=== PATIENT | female | born 1975 | race Asian ===

== ENCOUNTER 2017-03-25 07:47 | Emergency (ER) | payer BC, OTHER ==
[2017-03-25 08:04] VITALS: BP 104/63
[2017-03-25] MEDS ORDERED: Acetaminophen TAB* 325 MG PO ONE (10:03)
--- NOTE | 2017-03-25 10:21 | UC ---
Respiratory Complaint HPI - HPI Summary HPI Summary: 4 DAYS OF COUGH, CONGESTION, FATIGUE, MYALGIAS AND FEVER. UTD FLU SHOT. THIS MORNING HAD SEVERE SHARP LEFT SHOULDER/ANTERIOR CHEST PAIN. IS 29WKS WITH TWINS. HERE AT PT HAS ELEVATED TEMP AND IS TACHYCARDIC. ALSO C/O SOB AND SIGNIFICANT NAUSEA. NO VAGINAL BLEEDING OR LOSS OF FLUID. BABIES ARE MOVING BUT PERHAPS A LITTLE LESS THIS MORNING THAN NORMAL. NO CONTRACTIONS. - History of Current Complaint Chief Complaint: UCGeneralIllness Stated Complaint: FEVER SHOULDER PAIN Time Seen by Provider: 03/25/17 08:05 Hx Obtained From: Patient, Family/Hr Associate - Hx Last Menstrual Period: 06/09/17 Onset/Duration: Gradual Onset, Lasting Days, Still Present Severity Initially: Moderate Severity Currently: Moderate Pain Intensity: 2 Pain Scale Used: 0-10 Numeric Character: Cough: Nonproductive Aggravating Factors: Nothing Alleviating Factors: Nothing Associated Signs And Symptoms: Positive: Dyspnea, Fever, URI, Nasal Congestion - Allergies/Home Medications Allergies/Adverse Reactions: Allergies Allergy/AdvReac Type Severity Reaction Status Date / Time banana Allergy GI Upset Verified 03/25/17 07:58 MS Aspirin [ASA] Allergy Rash Verified 03/25/17 07:57 PMH/Surg Hx/FS Hx/Imm Hx Previously Healthy: Yes - Surgical History Surgical History: Yes Surgery Procedure, Year, and Place: csection - Family History Known Family History: Negative: Hypertension - Social History Alcohol Use: None Substance Use Type: None Smoking Status (MU): Never Smoked Tobacco - Immunization History Most Recent Influenza Vaccination: 12/08/14 Most Recent Tetanus Shot: 01/02/15 Most Recent Pneumonia Vaccination: never Review of Systems Constitutional: Fever, Chills, Fatigue ENT: Sore Throat, Nasal Discharge Respiratory: Shortness Of Breath, Cough Cardiovascular: Chest Pain Gastrointestinal: Nausea Musculoskeletal: Myalgia All Other Systems Reviewed And Are Negative: Yes Physical Exam Triage Information Reviewed: Yes Appearance: Well-Nourished, Ill-Appearing - MOD Vital Signs: Initial Vital Signs Temp 99.9 F 03/25/17 07:59 Pulse 121 03/25/17 07:59 Resp 18 03/25/17 07:59 BP 104/63 03/25/17 07:59 Pulse Ox 96 03/25/17 07:59 Vital Signs Reviewed: Yes Eyes: Positive: Conjunctiva Clear ENT: Positive: Hearing grossly normal, Pharynx normal, TMs normal Neck: Positive: Supple, Nontender, No Lymphadenopathy Respiratory Exam: Normal Cardiovascular: Positive: Tachycardia Abdomen Description: Positive: Soft, Other: - GRAVID Musculoskeletal: Positive: No Edema Neurological: Positive: Alert Psychological: Positive: Age Appropriate Behavior Skin: Negative: rashes UC Diagnostic Evaluation - Laboratory O2 Sat by Pulse Oximetry: 96 Diagnostic Studies Comment: FLU NEG Respiratory Course/Dx - Course Course Of Treatment: INFLUENZA SWAB NEG. GIVEN SYMPTOMS OF CHEST PAIN, SHORTNESS OF BREATH, FEVER, TACHYCARDIA AND NAUSEA IN - CONCERN FOR PE. TO [facility]. PT OFFERED TRANSPORT BY AMBULANCE BUT DECLINES. ADVISED THAT BY NOT TRAVELING IN A MONITORED SETTING SHE COULD BE RISKING WORSENING OF HER CONDITION THAT COULD POSE A THREAT TO HER LIFE, HEALTH AND MEDICAL SAFETY. SHE VERBALIZES UNDERSTANDING AND CONTINUES TO DECLINE AMBULANCE TRANSFER. NOTIFIED CHARGE NURSE, TARA AT [facility]. - Differential Dx/Diagnosis Provider Diagnoses: CP/SOB/FEVER IN - Physician Notification/Consults Discussed Patient Care With: Anitha Douglas - TO [facility] BY PRIVATE CAR Time Discussed With Above Provider: 10:00 Instructed by Provider To: MD Will See In ED Discharge - Discharge Plan Condition: Stable Disposition: OTHER Discharge Disposition Comment: TO [facility] BY PRIVATE CAR Patient Education Materials: Chest Pain (ED), Shortness of Breath (ED) Referrals: Sofia Aguero MD [Primary Care Provider] - Additional Instructions: GIVEN YOUR SYMPTOMS OF CHEST PAIN, SHORTNESS OF BREATH, FEVER, FAST HEART RATE AND NAUSEA IN - CONCERN FOR PE. GO DIRECTLY TO THE [facility] FROM HERE FOR FURTHER EVALUATION. YOU HAVE DECLINED AMBULANCE TRANSFER. BE ADVISED THAT BY NOT TRAVELING IN A MONITORED SETTING YOU COULD BE RISKING WORSENING OF YOUR CONDITION THAT COULD POSE A THREAT TO YOUR LIFE, HEALTH AND MEDICAL SAFETY.
== END 2017-03-25 10:30 ==
LOC: UCEAST 07:47
DX: O26.893 Other specified pregnancy related conditions, third trimester (principal); R07.89 Other chest pain; R06.02 Shortness of breath; R50.9 Fever, unspecified; R00.0 Tachycardia, unspecified; R11.0 Nausea; Z3A.29 29 weeks gestation of pregnancy; Z88.6 Allergy status to analgesic agent
CPT/HCPCS: 87502; 99212; A9270-GY; G0463

== ENCOUNTER 2017-03-25 10:49 | Inpatient (IN) | payer BC ==
[2017-03-25 12:18] LABS: ABS Basophils 0 10^3/ul (0-0.2); ABS Eosinophils 0.1 10^3/ul (0-0.6); ABS Lymphocytes 0.6 10^3/ul (1.0-4.8); ABS Monocytes 0.7 10^3/ul (0-0.8); ABS Neutrophils 13.8 10^3/ul (1.5-7.7); ABS Nucleated RBC 0 10^3/ul; Eosinophil % 0.3 % (0-6); Hematocrit 32 % (35-47); Hemoglobin 10.9 g/dl (12.0-16.0); Mean Corpuscular HGB Conc 34 g/dl (31-36); Mean Corpuscular Hemoglobin 35 pg (27-31); Mean Corpuscular Volume 102 fL (80-97); Mean Platelet Volume 8 um3 (7.4-10.4); Nucleated Red Blood Cells % 0; Platelet Count 148 10^3/ul (150-450); Red Blood Count 3.12 10^6/ul (4.0-5.4); Red Cell Distribution Width 14 % (10.5-15); White Blood Count 15.2 10^3/ul (3.5-10.8)
--- NOTE | 2017-03-25 12:29 | RAD ---
HISTORY: Shortness of breath, COMPARISONS: None relevant TECHNIQUE: Multiple transverse and longitudinal ultrasound images were obtained of the bilateral lower extremities from the level of the common femoral vein inferiorly through to the infrapopliteal veins using grayscale, color Doppler, and spectral Doppler imaging with and without compression and with augmentation. FINDINGS: VEINS: The venous system of the bilateral lower extremities is compressible throughout its course, with normal flow on color Doppler imaging and normal response to augmentation on spectral Doppler imaging. SOFT TISSUES: Unremarkable. OTHER FINDINGS: None. IMPRESSION: NO RIGHT LOWER EXTREMITY DEEP VEIN THROMBOSIS. NO LEFT LOWER EXTREMITY DEEP VEIN THROMBOSIS
[2017-03-25 12:31] LABS: EGFR Non-African American 141.8 (>60)
[2017-03-25] MEDS ORDERED: Potassium Chlor TAB* 20 MEQ TAB.ER PO ONE (12:33)
[2017-03-25] MEDS: NS 0.9% 1000 ML* 2,000 ML IV ONE ×3 (13:02→21:12)
[2017-03-25] MEDS ORDERED: Acetaminophen TAB* 325 MG PO ONE ×2 (13:30→20:06)
--- NOTE | 2017-03-25 13:35 | RAD ---
HISTORY: Chest pain, shortness of breath COMPARISONS: None VIEWS: 1: frontal portable view of the chest at 1:15 PM FINDINGS: LINES AND TUBES: None. CARDIOMEDIASTINAL SILHOUETTE: The cardiomediastinal silhouette is normal for portable technique. PLEURA: The costophrenic angles are sharp. No pleural abnormalities are noted. LUNG PARENCHYMA: A nipple shadow is noted overlying the left lower chest. ABDOMEN: The upper abdomen is clear. There is no subphrenic gas. BONES AND SOFT TISSUES: No bone or soft tissue abnormalities are noted. IMPRESSION: NO ACTIVE CARDIOPULMONARY DISEASE.
[2017-03-25 14:11] LABS: Urine Appearance Clear; Urine Blood Negative (Negative); Urine Color Yellow; Urine Ketones Negative (Negative); Urine Protein Negative (Negative); Urine Specific Gravity 1.005 (1.010-1.030); Urine Urobilinogen Negative (Negative)
[2017-03-25] MEDS ORDERED: NS 0.9% 1000 ML* 1,000 ML IV ONE (16:41)
[2017-03-25] MEDS ORDERED: Iohexol 350* (CONTRAST) 500 ML MDV IV ONE (18:10)
--- NOTE | 2017-03-25 18:49 | RAD ---
INDICATION: Shortness of breath COMPARISON: None TECHNIQUE: Axial source images were acquired following the administration of 61 mL Omnipaque [address] angiographic technique. Coronal and sagittal reconstructed images were constructed and reviewed. FINDINGS: There there are no filling defects in the pulmonary arteries to indicate acute pulmonary embolic disease. There is consolidation involving the dependent portion of the left lower lobe with scattered air bronchograms. There are patchy groundglass densities scattered in the lungs, for example in the subpleural right upper lobe (image 16 and 43). The heart is normal in size. There is no evidence of pericardial effusion. There is no evidence of aortic aneurysm or dissection. There is no mediastinal, hilar, or axillary lymphadenopathy. The visualized osseous structures appear normal. Limited views of the upper abdomen show no abnormalities. IMPRESSION: 1. No CT of evidence of pulmonary embolism. 2. There is consolidation with scattered air bronchograms in the dependent portion of the left lower lobe. Predominantly in the right lobes there are scattered groundglass nodules. The differential includes infectious pneumonia or inflammatory lung disease.
[2017-03-25] MEDS ORDERED: Azithromycin IV(*) 500 MG in NS 0.9% 250 ML* 250 ML IVPB ONE (19:12)
[2017-03-25] MEDS: Acetaminophen TAB* 325 MG PO PRN (23:56)
--- NOTE | 2017-03-25 23:57 | HP ---
CC: Dr. Sofia Aguero; Dr. Prado, [facility] * HISTORY AND PHYSICAL: DATE OF ADMISSION: 03/25/17 PRIMARY CARE PROVIDER: Dr. Sofia Aguero. INTERFACE ENGINEER: Dr. Prado. ATTENDING PHYSICIAN: Dr. Antoinette Armando * (dictated by Fabiola Cisneros NP). CHIEF COMPLAINT: Four days of cough, congestion, fatigue, myalgias and fever. HISTORY OF PRESENT ILLNESS: Ms. Colvin is a 42-year-old female with past medical history significant for hyperthyroidism, who is 29 weeks with twins who was in her usual state of health until approximately 4 days ago when she developed a cough, congestion, fatigue, malaise and fever. She reports that this morning, she developed a severe sharp right shoulder anterior chest pain, had a fever of 101.2 at home. Due to these symptoms, she decided to present to Urgent Care for further evaluation. Urgent Care sent the patient to the emergency room. The patient denies any chills. She reports intermittent shortness of breath since this morning. She denies nausea, vomiting, diarrhea. She reports a poor appetite, but states she has been drinking fluids well. While in the emergency room, she had labs remarkable for leukocytosis, a fever up to 103.5. She was tachycardic and tachypneic. She initially had a chest x- ray showing no acute findings. She had an EKG showing a sinus tachycardia and rate of 103. She had a negative urinalysis. She had a CT of her chest showing no evidence of a PE. She had venous Doppler's that were negative. She had an ESR of 68, a D-dimer of 398, lactic acid of 2.2, CRP of 46.22, TSH of 0.21. She was influenza A and B negative. Due the patient being , she was seen in consultation by Dr. Robert Shea with Obstetrics and the hospitalists were asked to evaluate the patient for admission. PAST MEDICAL HISTORY: 1. Hyperthyroidism during this . She is followed by Dr. Costello. 2. 29 weeks with twins. PAST SURGICAL HISTORY: Status post section 2 years ago. HOME MEDICATIONS: Include: 1. Multivitamin and DHA 1 tablet oral daily. 2. Acetaminophen 650 mg oral every 4 hours as needed for fever or pain. ALLERGIES: ASPIRIN and MORPHINE. FAMILY HISTORY: The patient's maternal grandmother had a history of an [place]. Her paternal family has a history of diabetes mellitus and she has no family history of cancer. SOCIAL HISTORY: The patient denies tobacco, alcohol, or recreational drug use. Her , Phil Ferrera, will be her surrogate decision maker in the event she is unable to make decisions for herself. REVIEW OF SYSTEMS: I performed an 11-point review of systems. All the pertinent positives and negatives are mentioned in the history of present illness. Remaining review of systems are negative. The patient has bilateral lower extremity edema that is chronic due to her in addition to myalgia, though it is chronic during her . She also denies any urinary symptoms. PHYSICAL EXAMINATION GENERAL APPEARANCE: The patient is alert, pleasant, and appears to be in no acute distress. VITAL SIGNS: Temperature 103.5, heart rate 130, respiratory rate 32, O2 sat 97 % on room air, blood pressure 125/89. HEENT: Normocephalic, atraumatic. Pupils are equal and reactive to light. Extraocular movements are intact. RESPIRATORY: Lung sounds are clear to auscultation, bilateral. CARDIOVASCULAR: Regular rate and rhythm, tachycardic. S1, S2 present. There are no murmurs, rubs or gallops heard. ABDOMEN: Gravid and nontender. There are bowel sounds present x4. EXTREMITIES: There is mild bilateral lower extremity edema. DP and PT pulses are 2+ and symmetric. MUSCULOSKELETAL: There is no clubbing or cyanosis noted. The patient exhibits good strength in all extremities. NEUROLOGIC: The patient is alert and oriented x4. Cranial nerves II through XII are grossly intact. PSYCHOLOGICAL: The patient is calm and cooperative. SKIN: There are no rashes or abnormalities seen. DIAGNOSTIC STUDIES/LABORATORY DATA: Sodium 130, potassium 3.2, chloride 100, CO2 21, BUN 5, creatinine 0.48, glucose 141, lactic acid 2.2, CRP 46.22, TSH 0.21. White blood cell count 15.2, hemoglobin 10.9, hematocrit 32, platelet count 148, ESR 60. Urinalysis is essentially negative. Influenza A and B negative. EKG: Shows a sinus tachycardia, rate of 103. There are no acute signs of ischemia. This EKG is similar to previous from 04/07/12. Bilateral lower extremity venous Doppler ultrasounds from today show no right lower extremity deep vein thrombosis. No left lower extremity deep vein thrombosis. Chest x-ray from today. Radiologist impression: No active cardiopulmonary disease. Chest thoracic CTA from today. Radiologist impression: No CT evidence of pulmonary embolus. There is consolidation with scattered air bronchograms in the dependent portion of the left lower lobe. Predominantly in the lobes, there are scattered grass ground nodules. The differential includes infectious pneumonia or inflammatory lung disease. IMPRESSION: Ms. Colvin is a 42-year-old female with past medical history significant for hyperthyroidism during who is 29 weeks gravid with twins who presented to the emergency room with complaints of cough, congestion, fatigue, and fever and was found to have pneumonia with sepsis. She will be admitted as an observation. ASSESSMENT/PLAN: 1. Left lower lobe pneumonia with associated sepsis. The patient has received the required amount of fluid bolus while in the emergency room. She had a fever as high as 103.5. We will give her Tylenol as needed for fevers. Due to her tachycardia, we will place her on telemetry. She is also tachypneic. We will continue IV fluids, place her on ceftriaxone and azithromycin both of which are safe with . We will check urine for Legionella and S. pneumoniae antigens. We will get a sputum culture if she is able to produce a sputum sample. 2. Hyperthyroidism. The patient's TSH appears to be close to what it has been. She follows with Dr. Costello as an outpatient. She will continue to do so accordingly monthly as previously planned. 3. 29 weeks gravid with twins. The patient will have heart tone checks every shift. She has been seen by Dr. Shea in the emergency room. She has been instructed to notify staff if she develops any abdominal discomfort or vaginal bleeding. 4. Fluids, electrolytes, and nutrition. The patient will be on a regular diet. 5. Code status. Full code. 6. DVT prophylaxis. The patient is at moderate risk and will have SCDs. 7. Disposition. Observation. TIME SPENT: Time for this admission was approximately 60 minutes, greater than half of that was spent with the patient and her discussing medications, past medical history, and the events leading up to arrival today and performing a physical examination. The case has been reviewed with the attending, Dr. Armando, who agrees with the plan of care. Reviewed by SUSAN GILMORE-Kevin 03/26/17 [id number]/[facility] #: [id number] MTDD
[2017-03-26] MEDS ORDERED: cefTRIAXone(*) 1 GM in NS 0.9% 50 ML* 50 ML IVPB SCH ×2
[2017-03-26] MEDS: NS 0.9% 1000 ML* 1,000 ML IV SCH ×3 (01:58→22:16)
--- NOTE | 2017-03-26 05:55 | PN ---
Progress Note - Progress Note Date of Service: 03/26/17 Note: Paged for SOB - Patient states she can't lie down because she starts coughing when lying down. States she couldn't tolerate nasal cannula because she is so congested and was switched to face mask. No increase in work of breathing. Diminished breath sounds with b/l rhonchi. Will start guanfesin and flonase for now.
[2017-03-26] MEDS: guaiFENesin LIQ* 100 MG/5 ML UDC PO PRN ×3 (06:01→19:25)
[2017-03-26] MEDS: Acetaminophen TAB* 325 MG PO PRN ×3 (06:01→19:26)
[2017-03-26] MEDS: Fluticasone NASAL SPRAY 50MCG* 16 gm SPRAY BTL BOTH NARES SCH ×2 (06:19→09:26)
[2017-03-26 08:00] LABS: Hematocrit 27 % (35-47); Hemoglobin 9.4 g/dl (12.0-16.0); Mean Corpuscular HGB Conc 35 g/dl (31-36); Mean Corpuscular Hemoglobin 36 pg (27-31); Mean Corpuscular Volume 105 fL (80-97); Mean Platelet Volume 8 um3 (7.4-10.4); Platelet Count 112 10^3/ul (150-450); Red Blood Count 2.59 10^6/ul (4.0-5.4); Red Cell Distribution Width 14 % (10.5-15); White Blood Count 14.9 10^3/ul (3.5-10.8)
[2017-03-26 08:25] LABS: EGFR Non-African American 170.1 (>60)
[2017-03-26] MEDS: Prenatal Vitamin TAB PO SCH (09:26)
[2017-03-26] MEDS ORDERED: Magnesium Sulfate IV* 3 GM in NS 0.9% 100 ML* 100 ML IVPB ONE (10:00)
[2017-03-26] MEDS ORDERED: Potassium Chlor TAB* 20 MEQ TAB.ER PO ONE (11:18)
[2017-03-26 11:31] LABS: Monocytes % 1 % (0-13)
[2017-03-26] MEDS ORDERED: Piperacillin/Tazobac ADVAN(*) 3.375 GM in NS 0.9% 100 ML* 100 ML IVPB ONE (14:00)
[2017-03-26] MEDS ORDERED: Zosyn per Pharmacy* NOTE FOLLOW UP SCH (14:00)
[2017-03-26] MEDS: Azithromycin IV(*) 500 MG in NS 0.9% 250 ML* 250 ML IVPB SCH (17:58)
[2017-03-26] MEDS ORDERED: ZOSYN 3.375 GM Q8H per EXTENDED INFUSION IVPB SCH ×4 (18:00→19:00)
--- NOTE | 2017-03-26 19:32 | PN ---
Subjective Date of Service: 03/26/17 Interval History: initially had sharp pain in left shoulder/upper chest. now resolved Spiked another fever. Blood cultures drawn and switched from ceftriaxone to zosyn. MRSA nares obtained and negative. Lactic acidosis Fevers overall improved. Dr. Prado consulted. Objective Active Medications: Acetaminophen (Tylenol Tab*) 650 mg PO Q4H PRN PRN Reason: FEVER/PAIN Last Admin: 03/26/17 11:46 Dose: 650 mg Fluticasone Propionate (Flonase Nasal Ivor 50mcg*) 2 spray BOTH NARES DAILY [facility] Last Admin: 03/26/17 09:26 Dose: 2 spray Guaifenesin (Robitussin*) 5 ml PO Q4H PRN PRN Reason: COUGH Last Admin: 03/26/17 10:23 Dose: 5 ml Sodium Chloride (Ns 0.9% 1000 Ml*) 1,000 mls @ 125 mls/hr IV PER RATE [facility] Last Admin: 03/26/17 10:23 Dose: 125 mls/hr Azithromycin 500 mg/ Sodium (Chloride) 250 mls @ 250 mls/hr IVPB Q24H [facility] Last Admin: 03/26/17 17:58 Dose: 250 mls/hr Piperacillin Sod/Tazobactam (Sod 3.375 gm/ Sodium Chloride) 100 mls @ 25 mls/ hr IVPB 0300,1100,1900 [facility] Multivitamins ( Vitamin Tab*) 1 tab PO DAILY [facility] Last Admin: 03/26/17 09:26 Dose: 1 tab Pharmacy Consult (Zosyn Per Pharmacy*) 1 note FOLLOW UP .ZOSYN PER PHARMACY [facility] Vital Signs - 8 hr 03/26/17 03/26/17 13:00 15:00 Temperature 101.2 F 98.4 F Pulse Rate 113 Respiratory 24 Rate Blood Pressure 102/68 (mmHg) O2 Sat by Pulse 94 Oximetry Oxygen Devices in Use Now: None Appearance: NAD Eyes: No Scleral Icterus, PERRLA Neck: NL Appearance and Movements; NL JVP Respiratory: Symmetrical Chest Expansion and Respiratory Effort, Clear to Auscultation Cardiovascular: NL Sounds; No Murmurs; No JVD, - - tachycardic Abdominal: - - gravid, nontender Extremities: No Edema, No Clubbing, Cyanosis Skin: No Rash or Ulcers, No Nodules or Sclerosis Neurological: Alert and Oriented x 3, NL Sensation, NL Muscle Strength and Tone Nutrition: Taking PO's Result Diagrams: 03/26/17 07:43 03/26/17 07:43 Additional Lab and Data: Laboratory Results - last 24 hr 03/26/17 03/26/17 03/26/17 07:43 07:43 07:43 WBC 14.9 H RBC 2.59 L Hgb 9.4 L Hct 27 L MCV 105 H MCH 36 H MCHC 35 RDW 14 Plt Count 112 L MPV 8 Neut % (Auto) Not Reportable Lymph % (Auto) Not Reportable [place] % (Auto) Not Reportable Eos % (Auto) Not Reportable Baso % (Auto) Not Reportable Absolute Neuts (auto) Not Reportable Absolute Lymphs (auto) Not Reportable Absolute Monos (auto) Not Reportable Absolute Eos (auto) Not Reportable Absolute Basos (auto) Not Reportable Absolute Nucleated RBC Not Reportable Immature Gran % 32 H Neutrophils % 60 Band Neutrophils % 27 H Lymphocytes % 7 L Reactive Lymphs % 0 Monocytes % 1 Eosinophils % 0 Basophils % 0 Metamyelocytes % 5 H Nucleated RBC % Not Reportable Abs Neuts (Manual) 8.9 H Abs Monocytes (Manual) 0.1 Absolute Eos (Manual) 0 Abs Basophils (Manual) 0 Normal RBC Morphology Normal Sodium 135 Potassium 3.3 L Chloride 111 Carbon Dioxide 17 L Anion Gap 7 BUN 4 L Creatinine 0.41 L Est GFR ( Amer) 218.8 Est GFR (Non-Af Amer) 170.1 BUN/Creatinine Ratio 9.8 Glucose 164 H Lactic Acid 2.2 H* Calcium 7.6 L Magnesium 1.6 L Total Bilirubin 0.50 AST 11 L ALT 7 Alkaline Phosphatase 69 Total Protein 4.7 L Albumin 2.5 L Globulin 2.2 Albumin/Globulin Ratio 1.1 03/26/17 14:38 WBC RBC Hgb Hct MCV MCH MCHC RDW Plt Count MPV Neut % (Auto) Lymph % (Auto) [place] % (Auto) Eos % (Auto) Baso % (Auto) Absolute Neuts (auto) Absolute Lymphs (auto) Absolute Monos (auto) Absolute Eos (auto) Absolute Basos (auto) Absolute Nucleated RBC Immature Gran % Neutrophils % Band Neutrophils % Lymphocytes % Reactive Lymphs % Monocytes % Eosinophils % Basophils % Metamyelocytes % Nucleated RBC % Abs Neuts (Manual) Abs Monocytes (Manual) Absolute Eos (Manual) Abs Basophils (Manual) Normal RBC Morphology Sodium Potassium Chloride Carbon Dioxide Anion Gap BUN Creatinine Est GFR ( Amer) Est GFR (Non-Af Amer) BUN/Creatinine Ratio Glucose Lactic Acid 2.1 H* Calcium Magnesium Total Bilirubin AST ALT Alkaline Phosphatase Total Protein Albumin Globulin Albumin/Globulin Ratio Microbiology and Other Data: Microbiology 03/26/17 00:05 Sputum Expectorated Gram Stain - Final 03/26/17 11:40 Nasal Nasal Screen MRSA (PCR)(LORI) - Final Mrsa Not Detected 03/25/17 22:23 Urine Legionella Urinary Antigen - Final Negative Legionella 03/25/17 22:23 Urine Streptococcus pneumoniae Ag Screen - Final Negative S. pneumo Antigen 03/25/17 12:48 Nasal Influenza Types A,B Antigen (LORI) - Final Specimen received for Influenza A/B Molecular testing Assess/Plan/Problems-Billing Assessment: 42 yo female 29 weeks with twins, recent son and sick p/w cough , congestion, fatigue, malaise. Flu swab negative. Fevers to 103, tachycardia, leukocytosis. Sepsis 2/2 likely viral +/- superimposed bacterial pna. CTA in ED with left base consolidation and right sided scattered ground glass nodules. On zosyn, azithromycin. - Patient Problems (1) Sepsis Current Visit: Yes Status: Acute Comment: Source likely viral insult +/- superimposed bacterial infection in setting of . Lactic acidosis 2.2. Leukocytosis 15.2 slightly improved. High fever to 103.5. Sick contacts 2 year old son and . (2) Pneumonia affecting in third trimester Current Visit: Yes Status: Acute Code(s): O99.513 - DISEASES OF THE RESP SYS COMP , THIRD TRIMESTER; J18.9 - PNEUMONIA, UNSPECIFIED ORGANISM SNOMED Code(s): 795679793 Comment: CT chest angiogram showed consolidation at base of left lung and scattered ground glass nodules mostly in right lung. f/u sputum culture MRSA negative switched from cftx to zosyn as still spiking fevers though think likely viral process as well. Continue azithromycin. added blood culture with recurrent fever. not drawn on admission. Urine Strep and Legionella antigens negative. (3) Current Visit: No Status: Acute Priority: High Onset Date: 04/03/15 Comment: [address], [address] Dr[address] Prado consulted. appreciate recs continue dopplers. planned at 38 weeks. reportedly uncomplicated. no protein on UA on admission. Not hypertensive. Status and Disposition: medicine inpatient.
[2017-03-26] MEDS ORDERED: Azithromycin IV(*) 500 MG in D5W 250 ML BAG* 250 ML IVPB SCH (22:00)
[2017-03-27] MEDS: [UNRECOGNIZED DRUG - OTHER] IVPB SCH ×6 (01:27→14:00)
[2017-03-27] MEDS: TAZOBACTAM IVPB SCH ×6 (01:27→14:00)
[2017-03-27] MEDS: PIPERACILLIN IVPB SCH ×6 (01:27→14:00)
[2017-03-27] MEDS: guaiFENesin LIQ* 100 MG/5 ML UDC PO PRN (04:55)
[2017-03-27 06:22] LABS: Hematocrit 28 % (35-47); Hemoglobin 9.6 g/dl (12.0-16.0); Mean Corpuscular HGB Conc 34 g/dl (31-36); Mean Corpuscular Hemoglobin 36 pg (27-31); Mean Corpuscular Volume 104 fL (80-97); Mean Platelet Volume 8 um3 (7.4-10.4); Platelet Count 127 10^3/ul (150-450); Red Blood Count 2.67 10^6/ul (4.0-5.4); Red Cell Distribution Width 14 % (10.5-15); White Blood Count 15.2 10^3/ul (3.5-10.8)
[2017-03-27 06:36] LABS: EGFR Non-African American 156.8 (>60)
[2017-03-27 06:57] LABS: ABS Basophils 0 10^3/ul (0-0.2); ABS Eosinophils 0.1 10^3/ul (0-0.6); ABS Lymphocytes 0.9 10^3/ul (1.0-4.8); ABS Monocytes 0.5 10^3/ul (0-0.8); ABS Neutrophils 13.6 10^3/ul (1.5-7.7); ABS Nucleated RBC 0 10^3/ul; Eosinophil % 0.9 % (0-6); Nucleated Red Blood Cells % 0
[2017-03-27] MEDS ORDERED: Magnesium Sulfate 2 GM IV* 2 GM/50 ML BAG IVPB ONE (07:45)
[2017-03-27] MEDS: Fluticasone NASAL SPRAY 50MCG* 16 gm SPRAY BTL BOTH NARES SCH (09:22)
[2017-03-27] MEDS: Prenatal Vitamin TAB PO SCH (09:22)
[2017-03-27] MEDS: Acetaminophen TAB* 325 MG PO PRN (09:22)
--- NOTE | 2017-03-27 10:23 | CONS ---
CONSULTATION REPORT: DATE OF CONSULT: 03/26/17 HISTORY OF PRESENT ILLNESS: The patient is a 42-year-old 3 para 1-0-1- 1 who presents with a diamniotic, dichorionic twin gestation at 29 and 2/7 weeks with fevers and left lower lobe pneumonia with consolidation in the left lower lobe consistent with pneumonia. The patient is currently on broad spectrum coverage for community-acquired, pneumonia has had negative cultures with Strep pneumo and influenza screening has been negative. The patient notes that the fever has been associated with a cough and left shoulder pain. The patient appears to be responding nicely to current IV antibiotics, does have blood cultures pending, but overall states that her cough is decreasing and she is feeling slightly improved. PAST MEDICAL HISTORY: Unremarkable. PAST SURGICAL HISTORY: Noted for a primary low transverse section on 04/03/15 with a category 2 heart tracing. MEDICATIONS: Current medications are vitamins and DHA. ALLERGIES: She has drug allergies to ASPIRIN. REVIEW OF SYSTEMS: Positive cough, positive congestion. Negative dysuria, hematuria, negative vaginal bleeding. PHYSICAL EXAM: Constitutional: The patient is resting in right lateral decubitus position. Abdomen: Gravid and nontender. Extremities: Nontender, trace edema. Lungs: Not auscultated. ASSESSMENT AND PLAN: The patient is a 42-year-old 3 para 1-0-1-1 who is 29 and 2/7 weeks with di-di twin with a diagnosis of pneumonia. I agree with antibiotic coverage and we will continue with IV antibiotic coverage for greater than 24 hours afebrile and then convert to oral course. Azithromycin will be an appropriate choice in this situation. The patient has a followup already scheduled for her obstetric visit in two weeks with growth ultrasound. We will recommend NSTs daily. She had a reactive NST from late and I would recommend just daily NSTs for heart tones and evaluate for uterine contractility. [id number]/[id number] #: [id number] [facility]AMPUSDora
--- NOTE | 2017-03-27 11:06 | ED ---
Rayray Campos Stephanie, scribed for Kavon Leroy MD on 03/25/17 at 1126 . Complex/Multi-Sys Presentation - HPI Summary HPI Summary: The pt is a 42 y/o F presenting to the ED with c/o fever at 04:00. Symptoms include cough (since 03/22), sore throat, chills, SOB and L shoulder to upper L chest intermittent pain. The pt denies sneezing and L arm pain with movement or breathing. The pt reports mild fever since 03/22/17, swelling in legs bilaterally , and chronic body aches with . [place] [facility] [facility] to r/o PE. The pt is 29 weeks . The pt is influenza negative. - History Of Current Complaint Chief Complaint: EDShortnessOfBreath Time Seen by Provider: 03/25/17 11:05 Hx Obtained From: Patient Onset/Duration: Gradual Onset, Lasting Hours - 7, Still Present Timing: Intermittent, Lasting: Severity Currently: Mild Associated Signs And Symptoms: Positive: SOB, Cough, Chest Pain - L side, Other - fever, sore throat, chills, L shoulder to upper L chest intermittent pain - Allergies/Home Medications Allergies/Adverse Reactions: Allergies Allergy/AdvReac Type Severity Reaction Status Date / Time banana Allergy GI Upset Verified 03/25/17 07:58 MS Aspirin [ASA] Allergy Rash Verified 03/25/17 07:57 Home Medications: Home Medications Vitamin TAB* 1 tab PO DAILY 03/25/17 [History Confirmed 03/25/17] PMH/Surg Hx/FS Hx/Imm Hx Sensory History: Denies: Hx Legally Blind EENT History: Denies: Hx Deafness - Surgical History Surgery Procedure, Year, and Place: csection Infectious Disease History: No Infectious Disease History: Denies: Traveled Outside the [place] in Last 30 Days - Family History Known Family History: Positive: Cardiac Disease, Hypertension, Other - hyperthyroidism - Social History Occupation: Employed Full-time Lives: With Family Alcohol Use: None Substance Use Type: Reports: None Hx Tobacco Use: No Smoking Status (MU): Never Smoked Tobacco Review of Systems Positive: Fever, Chills Negative: Erythema Positive: Sore Throat Positive: Chest Pain - L side Positive: Shortness Of Breath, Cough Negative: Abdominal Pain, Vomiting, Nausea Negative: dysuria, hematuria Positive: Myalgia - chronic with , Edema - chronic LE edema with , Other - L shoulder pain Negative: Rash Neurological: Other - Negative: dizziness All Other Systems Reviewed And Are Negative: Yes Physical Exam - Summary Physical Exam Summary: Constitutional: Well-developed, Well-nourished, Alert. (-) Distressed Skin: Warm to touch, Dry HENT: Normocephalic; Atraumatic Eyes: Conjunctiva normal Neck: Musculoskeletal ROM normal neck. (-) JVD, (-) Stridor, (-) Tracheal deviation Cardio: Rhythm regular, rate normal, Heart sounds normal; Intact distal pulses; The pedal pulses are 2+ and symmetric. Radial pulses are 2+ and symmetric. (-) Murmur Pulmonary/Chest wall: Effort normal. (-) Respiratory distress, (-) Wheezes, (-) Rales Abd: Soft, (-) Tenderness, (-) Distension, (-) Guarding, (-) Rebound Musculoskeletal: (-) Edema Lymph: (-) Cervical adenopathy Neuro: Alert, Oriented x3 Psych: Mood and affect Normal Triage Information Reviewed: Yes Vital Signs On Initial Exam: Initial Vitals Temp Pulse Resp BP Pulse Ox 99.5 F 114 16 111/57 95 03/25/17 10:56 03/25/17 10:56 03/25/17 10:56 03/25/17 10:56 03/25/17 10:56 Vital Signs Reviewed: Yes Diagnostics - Vital Signs Vital Signs Temp Pulse Resp BP Pulse Ox 03/25/17 10:56 99.5 F 114 16 111/57 95 - Laboratory Result Diagrams: 03/25/17 11:50 03/25/17 11:50 Lab Statement: Any lab studies that have been ordered have been reviewed, and results considered in the medical decision making process. - Radiology CXR Xray Interpretation: No Acute Changes Radiology Interpretation Completed By: Radiologist - NO ACTIVE CARDIOPULMONARY DISEASE. - CT CTA Chest/Thorax CT Interpretation: Positive (See Comments) CT Interpretation Completed By: Radiologist - 1. No CT of evidence of pulmonary embolism. 2. There is consolidation with scattered air bronchograms in the dependent portion of the left lower lobe. Predominantly in the right lobes there are scattered groundglass nodules. The differential includes infectious pneumonia or inflammatory lung disease. - EKG 11:23 EKG Rhythm: Sinus Tachycardia - 103 BPM EKG Interpretation: No STEMI - Additional Comments Diagnostic Additional Comments: Venous Doppler shows: NO RIGHT LOWER EXTREMITY DEEP VEIN THROMBOSIS. NO LEFT LOWER EXTREMITY DEEP VEIN THROMBOSIS Re-Evaluation - Re-Evaluation First Eval Re-Evaluation Time: 12:35 Change: Worse - The ptt pain returned. She denies desire for pain medication and refuses an IV. ED physician gave the pt literature from [employer] [place] [employer] [employer] regarding radiation risk. ED physician explained information to the pt and . Second Eval Re-Evaluation Time: 14:20 Change: Unchanged - Pt is still having L sided CP and now also in abdomen. Third Eval Re-Evaluation Time: 20:39 Change: Unchanged - Pt refusing to walk at this time. She says she is too cold and too week. Complex Multi-Symp Course/Dx Course Of Treatment: ED physician states possibility of pericarditis or viral syndrome as son recently had febrile illness. Fever preceded CP. CP and SOB are currently resolved. ED physician believes she is intermediate risk for PE pretest probability. ED physician confirmed with [facility] lab that repeat flu test was also negative.Dr. Shea evaluated the pt. The patients abd pain resolved. He believes she had round ligament pain. The pt and her want a CT chest based on discussion they had with Dr. Guallpa. Medicine will admit. OB will consult for . - Diagnoses Provider Diagnoses: Sepsis, Community acquired pneumonia Discharge - Discharge Plan Condition: Stable Disposition: ADMITTED TO [facility] Referrals: Sofia Aguero MD [Primary Care Provider] - The documentation as recorded by the Rayray timmons Stephanie accurately reflects the service I personally performed and the decisions made by me, Kavon Leroy MD.
--- NOTE | 2017-03-27 11:32 | PN ---
Subjective Date of Service: 03/27/17 Interval History: Sharp pain up to 8/10 in LUQ this AM, currently resolved. pleuritic pain in left back with deep breaths. Cough slightly better, still brown/red. Tmax 101.2, improved since. Green soft BMs. Objective Active Medications: Acetaminophen (Tylenol Tab*) 650 mg PO Q4H PRN PRN Reason: FEVER/PAIN Last Admin: 03/27/17 09:22 Dose: 650 mg Fluticasone Propionate (Flonase Nasal [place] 50mcg*) 2 spray BOTH NARES DAILY [facility] Last Admin: 03/27/17 09:22 Dose: Not Given Guaifenesin (Robitussin*) 5 ml PO Q4H PRN PRN Reason: COUGH Last Admin: 03/27/17 04:55 Dose: 5 ml Azithromycin 500 mg/ Sodium (Chloride) 250 mls @ 250 mls/hr IVPB Q24H [facility] Last Admin: 03/26/17 17:58 Dose: 250 mls/hr Piperacillin Sod/Tazobactam (Sod 3.375 gm/ Sodium Chloride) 100 mls @ 200 mls/ hr IVPB Q6H [facility] Last Admin: 03/27/17 08:35 Dose: 200 mls/hr Multivitamins ( Vitamin Tab*) 1 tab PO DAILY [facility] Last Admin: 03/27/17 09:22 Dose: 1 tab Pharmacy Consult (Zosyn Per Pharmacy*) 1 note FOLLOW UP .ZOSYN PER PHARMACY [facility] Vital Signs - 8 hr 03/27/17 03/27/17 07:31 08:00 Temperature 97.7 F Pulse Rate 102 Respiratory 18 18 Rate Blood Pressure 100/57 (mmHg) O2 Sat by Pulse 91 Oximetry Oxygen Devices in Use Now: None Appearance: NAD, less anxious appearing. Eyes: No Scleral Icterus, PERRLA Ears/Nose/Mouth/Throat: NL Teeth, Lips, Gums, Mucous Membranes Moist Neck: NL Appearance and Movements; NL JVP Respiratory: - - slight rhonchi left base. no wheezing or rales. Cardiovascular: NL Sounds; No Murmurs; No JVD, RRR, - Abdominal: - - gravid, nontender, Extremities: No Edema Skin: No Rash or Ulcers, No Nodules or Sclerosis Neurological: Alert and Oriented x 3, NL Sensation, NL Muscle Strength and Tone Result Diagrams: 03/27/17 06:00 03/27/17 06:00 Additional Lab and Data: Laboratory Results - last 24 hr 03/26/17 03/26/17 03/27/17 07:43 14:38 06:00 WBC 14.9 H 15.2 H RBC 2.59 L 2.67 L Hgb 9.4 L 9.6 L Hct 27 L 28 L MCV 105 H 104 H MCH 36 H 36 H MCHC 35 34 RDW 14 14 Plt Count 112 L 127 L MPV 8 8 Neut % (Auto) Not Reportable 89.6 H Lymph % (Auto) Not Reportable 6.0 L [place] % (Auto) Not Reportable 3.4 Eos % (Auto) Not Reportable 0.9 Baso % (Auto) Not Reportable 0.1 Absolute Neuts (auto) Not Reportable 13.6 H Absolute Lymphs (auto) Not Reportable 0.9 L Absolute Monos (auto) Not Reportable 0.5 Absolute Eos (auto) Not Reportable 0.1 Absolute Basos (auto) Not Reportable 0 Absolute Nucleated RBC Not Reportable 0 Immature Gran % 32 H Neutrophils % 60 Band Neutrophils % 27 H Lymphocytes % 7 L Reactive Lymphs % 0 Monocytes % 1 Eosinophils % 0 Basophils % 0 Metamyelocytes % 5 H Nucleated RBC % Not Reportable 0 Abs Neuts (Manual) 8.9 H Abs Monocytes (Manual) 0.1 Absolute Eos (Manual) 0 Abs Basophils (Manual) 0 Normal RBC Morphology Normal Sodium Potassium Chloride Carbon Dioxide Anion Gap BUN Creatinine Est GFR ( Amer) Est GFR (Non-Af Amer) BUN/Creatinine Ratio Glucose Lactic Acid 2.1 H* Calcium Magnesium Vitamin B12 Folate 03/27/17 06:00 WBC RBC Hgb Hct MCV MCH MCHC RDW Plt Count MPV Neut % (Auto) Lymph % (Auto) [place] % (Auto) Eos % (Auto) Baso % (Auto) Absolute Neuts (auto) Absolute Lymphs (auto) Absolute Monos (auto) Absolute Eos (auto) Absolute Basos (auto) Absolute Nucleated RBC Immature Gran % Neutrophils % Band Neutrophils % Lymphocytes % Reactive Lymphs % Monocytes % Eosinophils % Basophils % Metamyelocytes % Nucleated RBC % Abs Neuts (Manual) Abs Monocytes (Manual) Absolute Eos (Manual) Abs Basophils (Manual) Normal RBC Morphology Sodium 134 Potassium 3.5 Chloride 110 Carbon Dioxide 19 L Anion Gap 5 BUN 4 L Creatinine 0.44 L Est GFR ( Amer) 201.7 Est GFR (Non-Af Amer) 156.8 BUN/Creatinine Ratio 9.1 Glucose 103 H Lactic Acid Calcium 8.3 L Magnesium 1.8 L Vitamin B12 534 Folate > 20.00 Microbiology and Other Data: Microbiology 03/26/17 00:05 Sputum Expectorated Gram Stain - Final 03/26/17 11:40 Nasal Nasal Screen MRSA (PCR)(LORI) - Final Mrsa Not Detected 03/25/17 22:23 Urine Legionella Urinary Antigen - Final Negative Legionella 03/25/17 22:23 Urine Streptococcus pneumoniae Ag Screen - Final Negative S. pneumo Antigen 03/25/17 12:48 Nasal Influenza Types A,B Antigen (LORI) - Final Specimen received for Influenza A/B Molecular testing Assess/Plan/Problems-Billing Assessment: 42 yo female 29 weeks with twins, recent son and sick p/w cough , congestion, fatigue, malaise. Flu swab negative. Fevers to 103, tachycardia, leukocytosis. Sepsis 2/2 likely viral +/- superimposed bacterial pna. CTA in ED with left base consolidation and right sided scattered ground glass nodules. On zosyn, azithromycin. Improving. - Patient Problems (1) Sepsis Current Visit: Yes Status: Acute Comment: Source likely viral insult +/- superimposed bacterial infection in setting of . Lactic acidosis 2.2 to 2.1. Leukocytosis 15.2. Initially High fever to 103.5. Sick contacts 2 year old son and . (2) Pneumonia affecting in third trimester Current Visit: Yes Status: Acute Code(s): O99.513 - DISEASES OF THE RESP SYS COMP , THIRD TRIMESTER; J18.9 - PNEUMONIA, UNSPECIFIED ORGANISM SNOMED Code(s): 888689755 Comment: CT chest angiogram showed consolidation at base of left lung and scattered ground glass nodules mostly in right lung. f/u sputum culture which had GPC 2+ MRSA negative continue zosyn and azithromycin for now, hopefully narrow later today with additional culture data. f/u blood culture with recurrent fever. Urine Strep and Legionella antigens negative. (3) Current Visit: No Status: Acute Priority: High Onset Date: 04/03/15 Comment: 29 week, [address] Dr[address] Prado consulted. appreciate recs continue dopplers. planned at 38 weeks. reportedly uncomplicated. no protein on UA on admission. Not hypertensive. Status and Disposition: medicine inpatient. Potential discharge 03/28
[2017-03-27] MEDS: Azithromycin IV(*) 500 MG in NS 0.9% 250 ML* 250 ML IVPB SCH (17:59)
[2017-03-27] MEDS: cefTRIAXone(*) 2 GM in NS 0.9% 100 ML* 100 ML IVPB SCH (21:26)
--- NOTE | 2017-03-28 00:16 | PN ---
Progress Note - Progress Note Date of Service: 03/28/17 Note: Pt at about 29 wks with di/di IVF twins, being treated for pneumonia. Appears to be responding well at this point, no fevers today. Was having some abdominal pains again tonight, and NST noted ctx about every 2- 4 minutes. On exam, pt reported most of the discomforts had resolved again. Just to be sure, cervix checked: Closed/long/high. Pt still with active movements. Plan to continue daily NSTs, abx as advised by hospitalist service.
[2017-03-28 06:32] LABS: Hematocrit 32 % (35-47); Hemoglobin 11.1 g/dl (12.0-16.0); Mean Corpuscular HGB Conc 35 g/dl (31-36); Mean Corpuscular Hemoglobin 36 pg (27-31); Mean Corpuscular Volume 102 fL (80-97); Mean Platelet Volume 8 um3 (7.4-10.4); Platelet Count 169 10^3/ul (150-450); Red Blood Count 3.09 10^6/ul (4.0-5.4); Red Cell Distribution Width 14 % (10.5-15); White Blood Count 10.1 10^3/ul (3.5-10.8)
[2017-03-28 06:48] LABS: EGFR Non-African American 165.5 (>60)
[2017-03-28 07:17] LABS: ABS Basophils 0 10^3/ul (0-0.2); ABS Eosinophils 0.1 10^3/ul (0-0.6); ABS Lymphocytes 1.2 10^3/ul (1.0-4.8); ABS Monocytes 0.5 10^3/ul (0-0.8); ABS Neutrophils 8.2 10^3/ul (1.5-7.7); ABS Nucleated RBC 0 10^3/ul; Eosinophil % 1.2 % (0-6); Nucleated Red Blood Cells % 0.1
[2017-03-28] MEDS: Prenatal Vitamin TAB PO SCH (07:33)
[2017-03-28] MEDS: Fluticasone NASAL SPRAY 50MCG* 16 gm SPRAY BTL BOTH NARES SCH (07:35)
--- NOTE | 2017-03-28 18:32 | PN ---
Subjective Date of Service: 03/28/17 Interval History: contractions overnight not clear how long. resolved by morning. cervix closed, long by obgyn eval. Pt extremely anxious. Afebrile. On RA. Still coughing, scant pink tinged ( examined). Leukocytosis resolved. Objective Active Medications: Acetaminophen (Tylenol Tab*) 650 mg PO Q4H PRN PRN Reason: FEVER/PAIN Last Admin: 03/27/17 09:22 Dose: 650 mg Fluticasone Propionate (Flonase Nasal [place] 50mcg*) 2 spray BOTH NARES DAILY [facility] Last Admin: 03/28/17 07:35 Dose: Not Given Guaifenesin (Robitussin*) 5 ml PO Q4H PRN PRN Reason: COUGH Last Admin: 03/27/17 04:55 Dose: 5 ml Ceftriaxone Sodium 2 gm/ (Sodium Chloride) 100 mls @ 400 mls/hr IVPB Q24H [facility] Last Admin: 03/27/17 21:26 Dose: 400 mls/hr Multivitamins ( Vitamin Tab*) 1 tab PO DAILY [facility] Last Admin: 03/28/17 07:33 Dose: 1 tab Vital Signs - 8 hr 03/28/17 03/28/17 11:49 15:53 Temperature 97.8 F 96.7 F Pulse Rate 96 92 Respiratory 18 16 Rate Blood Pressure 102/57 113/62 (mmHg) O2 Sat by Pulse 94 97 Oximetry Oxygen Devices in Use Now: None Appearance: NAD. Eyes: No Scleral Icterus, PERRLA Ears/Nose/Mouth/Throat: NL Teeth, Lips, Gums, Mucous Membranes Moist Neck: NL Appearance and Movements; NL JVP Respiratory: Symmetrical Chest Expansion and Respiratory Effort, - - slight rhonchi left lower base. Cardiovascular: NL Sounds; No Murmurs; No JVD, RRR Abdominal: NL Sounds; No Tenderness; No Distention Extremities: No Edema, No Clubbing, Cyanosis Skin: No Rash or Ulcers, No Nodules or Sclerosis Neurological: Alert and Oriented x 3, NL Sensation, NL Muscle Strength and Tone Nutrition: Taking PO's Result Diagrams: 03/28/17 06:25 03/28/17 06:25 Additional Lab and Data: Laboratory Results - last 24 hr 03/28/17 03/28/17 06:25 06:25 WBC 10.1 RBC 3.09 L Hgb 11.1 L Hct 32 L MCV 102 H MCH 36 H MCHC 35 RDW 14 Plt Count 169 MPV 8 Neut % (Auto) 81.5 Lymph % (Auto) 12.0 L [place] % (Auto) 5.2 Eos % (Auto) 1.2 Baso % (Auto) 0.1 Absolute Neuts (auto) 8.2 H Absolute Lymphs (auto) 1.2 Absolute Monos (auto) 0.5 Absolute Eos (auto) 0.1 Absolute Basos (auto) 0 Absolute Nucleated RBC 0 Nucleated RBC % 0.1 Sodium 136 Potassium 3.5 Chloride 108 Carbon Dioxide 21 L Anion Gap 7 BUN 5 L Creatinine 0.42 L Est GFR ( Amer) 212.8 Est GFR (Non-Af Amer) 165.5 BUN/Creatinine Ratio 11.9 Glucose 87 Calcium 8.8 Microbiology and Other Data: Microbiology 03/26/17 15:33 Blood Venous Aerobic Blood Culture - Preliminary No Growth Day 2 03/26/17 15:33 Blood Venous Anaerobic Blood Culture - Preliminary No Growth Day 2 03/26/17 14:38 Blood Venous Aerobic Blood Culture - Preliminary No Growth Day 2 03/26/17 14:38 Blood Venous Anaerobic Blood Culture - Preliminary No Growth Day 2 03/26/17 00:05 Sputum Expectorated Gram Stain - Final 03/26/17 00:05 Sputum Expectorated Sputum Culture - Final Streptococcus Pneumoniae Normal [place]i 03/26/17 11:40 Nasal Nasal Screen MRSA (PCR)(LORI) - Final Mrsa Not Detected 03/25/17 22:23 Urine Legionella Urinary Antigen - Final Negative Legionella 03/25/17 22:23 Urine Streptococcus pneumoniae Ag Screen - Final Negative S. pneumo Antigen 03/25/17 12:48 Nasal Influenza Types A,B Antigen (LORI) - Final Specimen received for Influenza A/B Molecular testing Assess/Plan/Problems-Billing Assessment: 42 yo female 29 weeks with twins, recent son and sick p/w cough , congestion, fatigue, malaise. Flu swab negative. Fevers to 103, tachycardia, leukocytosis. Sepsis 2/2 likely viral +/- superimposed bacterial pna. CTA in ED with left base consolidation and right sided scattered ground glass nodules. On ceftriaxone, improved. Some contractions 2/15PM. - Patient Problems (1) Sepsis Current Visit: Yes Status: Acute Comment: resolved Source likely viral insult +/- superimposed bacterial infection(Strep pna) in setting of relative immune compromise of . Lactic acidosis 2.2 to 2.1. Leukocytosis 15.2(resolved). Initially High fever to 103.5. Sick contacts 2 year old son and . (2) Pneumonia affecting in third trimester Current Visit: Yes Status: Acute Code(s): O99.513 - DISEASES OF THE RESP SYS COMP , THIRD TRIMESTER; J18.9 - PNEUMONIA, UNSPECIFIED ORGANISM SNOMED Code(s): 210033038 Comment: CT chest angiogram showed consolidation at base of left lung and scattered ground glass nodules mostly in right lung. sputum culture with Strep Pna. MRSA negative continue ceftriazone while inpatient. Day 4. Plan outpatient course of Augmentin. blood culture NGTD. Urine Strep and Legionella antigens negative. (3) Current Visit: No Status: Acute Priority: High Onset Date: 04/03/15 Comment: [address], [address] Dr[address] Praod consulted. appreciate recs continue dopplers. planned at 38 weeks. reportedly uncomplicated. some contractions 03/27 no protein on UA on admission. Not hypertensive. Status and Disposition: medicine inpatient. Potential discharge 03/29
[2017-03-28] MEDS: cefTRIAXone(*) 2 GM in NS 0.9% 100 ML* 100 ML IVPB SCH (19:41)
[2017-03-29 06:15] LABS: Hematocrit 32 % (35-47); Mean Corpuscular HGB Conc 35 g/dl (31-36); Mean Corpuscular Hemoglobin 36 pg (27-31); Mean Corpuscular Volume 103 fL (80-97); Mean Platelet Volume 7 um3 (7.4-10.4); Platelet Count 196 10^3/ul (150-450); Red Blood Count 3.08 10^6/ul (4.0-5.4); Red Cell Distribution Width 13 % (10.5-15); White Blood Count 8.6 10^3/ul (3.5-10.8)
[2017-03-29] MEDS ORDERED: Magnesium Sulfate IV* 3 GM in NS 0.9% 100 ML* 100 ML IVPB ONE (06:53)
[2017-03-29 07:00] LABS: ABS Basophils 0 10^3/ul (0-0.2); ABS Eosinophils 0.2 10^3/ul (0-0.6); ABS Lymphocytes 1.3 10^3/ul (1.0-4.8); ABS Monocytes 0.5 10^3/ul (0-0.8); ABS Neutrophils 6.6 10^3/ul (1.5-7.7); ABS Nucleated RBC 0 10^3/ul; Eosinophil % 1.9 % (0-6); Lymphocyte % 15.4 % (25-47); Nucleated Red Blood Cells % 0
[2017-03-29] MEDS: Fluticasone NASAL SPRAY 50MCG* 16 gm SPRAY BTL BOTH NARES SCH (09:20)
[2017-03-29] MEDS: Prenatal Vitamin TAB PO SCH (09:20)
[2017-03-29] MEDS ORDERED: Magnesium Sulfate 2 GM IV* 2 GM/50 ML BAG IVPB ONE (10:55)
[2017-03-29 15:49] VITALS: BP 128/63
--- NOTE | 2017-03-30 04:54 | DS ---
DISCHARGE SUMMARY: DATE OF ADMISSION: 03/26/17 DATE OF DISCHARGE: 03/29/17 ADMITTING PROVIDER: Fabiola Chi NP ATTENDING PHYSICIAN: Nir Larkin MD PRIMARY CARE PROVIDER: Dr. Sofia Aguero PRIMARY LICENSED ARCHITECT: Dr. Luh Prado CHIEF COMPLAINT: Four days of cough, congestion, fatigue, myalgias, fever. PRINCIPAL DIAGNOSIS: Pneumonia in the setting of likely viral illness and sick contacts; sepsis. HISTORY OF PRESENT ILLNESS AND HOSPITAL COURSE: Marbin Colvin is a 42-year-old female with past medical history significant for hyperthyroidism in the setting of (followed by Dr. Costello), 29 weeks with twins, who 4 days prior to admission developed cough, congestion, fatigue, malaise, and fever. She developed sharp anterior left shoulder pain and a fever of 101.2 at home, and presented to Urgent Care and then referred to the emergency room given tachycardia and concern for possible pulmonary embolism. Of note, she did have significant sick contacts with her son and also having likely viral illnesses within the last week prior to discharge. White count initially was 15.2 with left shift and 27% bands, lactic acidosis of 2.2. She had a modestly elevated D-dimer of 398 and after much discussion between ED physician and Radiology, they decided to perform a CT chest angiogram to rule out PE, which was not found. It did show some consolidation at the left base and some ground- glass nodules, mostly on the right. She was started empirically on ceftriaxone and azithromycin. She met sepsis criteria. Blood pressures were in the 90s/60s , was tachycardic to the 110s up to 130 in the emergency room. Again, temperature was 103.5 max. She was tachypneic as high as 32 and was placed on 2 L nasal cannula. The patient was evaluated by OB-COLORIST FORMULATOR doctor in the emergency room and throughout the admission had Doppler ultrasounds to document heart tones. The patient slowly recovered, but did have spike of another fever on hospital day #2, at which point, blood cultures were obtained, which had not been obtained in the emergency room and the patient was switched from ceftriaxone to Zosyn; she got 1 day of this. Her sputum grew streptococcal pneumonia. Her legionella and Streptococcus pneumoniae urine antigens had been negative. Her blood cultures have been negative x2 days. MRSA nares was negative. Her Zosyn was switched back to ceftriaxone and azithromycin eventually stopped. She is being discharged on 3 more days of p.o. Augmentin for streptococcal pneumonia. The patient had intermittent contractions overnight on hospital day #3 and #4 and was evaluated by OB-COLORIST FORMULATOR and OB-COLORIST FORMULATOR nursing daily and was thought to have [place] contractions, not concerning for labor. Dr. Ni evaluated her cervix on night of 03/27/17, it was closed, long, and high. 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 She felt much more comfortable on the morning of discharge and is following up with Dr. Sofia Aguero within 5 days and has previously arranged with Dr. Prado and her colleagues with OB-COLORIST FORMULATOR next , approximately 2 weeks from now. Please call sooner with any concerning contractions. Discharge white count was 8.6. She did intermittently get magnesium supplementation and her lactic acid had resolved. She was noted to be macrocytic. Her B12 was 534 and folate was greater than 20. DISCHARGE MEDICATIONS: Include: 1. Augmentin 875 mg p.o. b.i.d. for 3 more days. 2. Probiotic (Lactobacillus acidophilus) 1.5 p.o. daily for 20 days. 3. vitamin 1 tab p.o. daily. 4. Acetaminophen 650 mg p.o. q.3 hours p.r.n. (old). DISCHARGE DIET: No restrictions. ACTIVITY LEVEL: No strenuous activity, otherwise normal. FOLLOWUP: Please follow up with Dr. Sofia Aguero within [address] Prado and her colleagues within 2 weeks as originally planned. TIME SPENT: Time spent on this discharge was 35 minutes. [id number]/[facility] #: [id number] [facility]ITALDora
== END 2017-03-29 16:30 | disposition home or self-care (01) | DRG 566 ==
LOC: ED 10:49 → MED 21:14 → ED 22:26 → OBSVTOIN 03-26 09:00
PROVIDERS: ADMIT Pediatrics; ATTEND Internal Medicine
PROC: 4A1HX4Z Monitoring of Products of Conception, Cardiac Electrical Activity, External Approach (ICD-10-PCS; principal; 2017-03-26)
DX: O98.813 Other maternal infectious and parasitic diseases complicating pregnancy, third trimester (principal); A41.9 Sepsis, unspecified organism; J12.9 Viral pneumonia, unspecified; O34.211 Maternal care for low transverse scar from previous cesarean delivery; E87.2 Acidosis; O26.893 Other specified pregnancy related conditions, third trimester; O99.283 Endocrine, nutritional and metabolic diseases complicating pregnancy, third trimester; E05.90 Thyrotoxicosis, unspecified without thyrotoxic crisis or storm; O30.043 Twin pregnancy, dichorionic/diamniotic, third trimester; R91.8 Other nonspecific abnormal finding of lung field; B95.5 Unspecified streptococcus as the cause of diseases classified elsewhere; Z3A.29 29 weeks gestation of pregnancy; Z88.5 Allergy status to narcotic agent; Z88.8 Allergy status to other drugs, medicaments and biological substances; Z91.018 Allergy to other foods; Z82.49 Family history of ischemic heart disease and other diseases of the circulatory system; Z83.3 Family history of diabetes mellitus
CPT/HCPCS: 36415; 71045; 71275; 78582; 80048; 80053; 81003; 82607; 82746; 83605; 83735; 84439; 84443; 84484; 85025; 85379; 85652; 86140; 87040; 87070; 87077; 87186; 87205; 87502; 87641; 87899; 93005; 93970; 99212; 99285; A9270-GY; A9540; A9558; G0463; J0456; J0696; J2543; J3475; Q9967

== ENCOUNTER 2017-05-26 06:12 | Inpatient (IN) | payer BC ==
[2017-05-25 14:19] LABS: ABS Basophils 0 10^3/ul (0-0.2); ABS Eosinophils 0.1 10^3/ul (0-0.6); ABS Lymphocytes 1.4 10^3/ul (1.0-4.8); ABS Monocytes 0.4 10^3/ul (0-0.8); ABS Neutrophils 4.7 10^3/ul (1.5-7.7); ABS Nucleated RBC 0 10^3/ul; Eosinophil % 1.3 % (0-6); Hematocrit 38 % (35-47); Hemoglobin 13.6 g/dl (12.0-16.0); Lymphocyte % 20.9 % (25-47); Mean Corpuscular HGB Conc 36 g/dl (31-36); Mean Corpuscular Hemoglobin 37 pg (27-31); Mean Corpuscular Volume 103 fL (80-97); Nucleated Red Blood Cells % 0.1; Platelet Count 138 10^3/ul (150-450); Red Blood Count 3.66 10^6/ul (4.0-5.4); Red Cell Distribution Width 13 % (10.5-15); White Blood Count 6.6 10^3/ul (3.5-10.8)
--- OUTSIDE RECORDS SUMMARY | 2017-05-26 06:16 | XMS REPORT ---
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 [address] [place] [address] Problems Date Description Provider Status Onset: 09/06/2014 Conceived by in vitro fertilization Joelle Dunham NP Resolved Resolved: 08/03/2015 Onset: 09/06/2014 Elderly primigravida Joelle Dunham NP Resolved Resolved: 08/03/2015 Family History Date Family Member(s) Problem(s) Comments Father A&W Mother Hypothyroidism First Son A&W Paternal Grandfather due to Sepsis () Paternal Grandfather Hypertension Paternal Grandmother due to Natural Causes () Paternal Grandmother Osteoporosis Maternal Grandfather due to Complications from gallstones ( ) Maternal Grandfather [place] Maternal Grandmother A&W Social History Type Date Description Comments Education Highest level completed, Doctorate Marital Status Lives With Lives With Son Pets 1 dog 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 [employer] Cigarette Use Never Smoked Cigarettes ETOH Use Denies alcohol use Smoking Patient has never smoked Recreational Drug Use Denies Drug Use Daily Caffeine Consumes on average 1 cup of tea per day Seat Belt/Car Seat Always uses seat belt STD's No STD History Allergies, Adverse Reactions, Alerts Date Description Reaction Status Severity Comments 02/27/2011 Aspirin active Medications Medication Date Status Form Strength Qnty SIG Indications Ordering Provider Vitamin Active Tablets 1 po qd Unknown 000 Calcium 500 +D Active Tablets 500-400mg-U 1 po qd Unknown 000 nit Nortriptyline Hx Capsules 10mg 60caps 1tablet Brigette HCL 012 - at [facility] night Abyanmalcolm, 015 daily Lidocaine Hx Cream 3% 1units apply Brigette 012 - externa [facility] lly. [place], 015 Acetaminophen 0 Hx Unknown 000 - 015 Vitamin C Hx Unknown 000 - 015 Crinone Hx Unknown 000 - 015 Medications Administered in Office Medication Date Status Form Strength Qnty SIG Indications Ordering Provider PT SCRN Tbco Administered Injection Luh Id as Non User 018 MD Johan Immunizations CPT Code Status Date Vaccine Lot # [id number] Given 03/14/2017 Tetnus, Diptheria Toxoids And Acellular Pertussis, 499PG PT > 7Yrs Old [address]57 Given 11/11/2016 Influenza Virus Vaccine, Quadrivalent, Split, [id number] Preservative Free 09664 Given 01/02/2015 Tetnus, Diptheria Toxoids And Acellular Pertussis, [id number] PT > 7Yrs Old 57667 Given 12/08/2014 Influenza Virus Vaccine Split Virus Use For [id number] Individual 3Yr Older Vital Signs Date Vital Result Comment 05/14/2017 BP Systolic 110 mmHg BP Diastolic 80 mmHg Body Temperature 97.6 F Heart Rate 72 /min Respiratory Rate 10 /min Height 63.5 inches 5'3.50" Weight 159.00 lb BMI (Body Mass Index) 27.7 kg/m2 Last Menstrual Period 5316812 3 Parity 1 11/11/2016 BP Systolic 98 mmHg BP Diastolic 56 mmHg Height 63.5 inches 5'3.50" Weight 115.00 lb BMI (Body Mass Index) 20.0 kg/m2 Last Menstrual Period 4236236 3 Parity 1 01/24/2016 BP Systolic 98 mmHg BP Diastolic 66 mmHg Height 63.5 inches 5'3.50" Weight 113.00 lb BMI (Body Mass Index) 19.7 kg/m2 Last Menstrual Period 8669579 2 Parity 1 05/04/2015 BP Systolic 112 mmHg BP Diastolic 78 mmHg Height 64 inches 5'4" Weight 137.00 lb BMI (Body Mass Index) 23.5 kg/m2 2 Parity 1 04/11/2015 BP Systolic 120 mmHg BP Diastolic 78 mmHg Height 64 inches 5'4" Weight 146.00 lb BMI (Body Mass Index) 25.1 kg/m2 2 Parity 1 09/06/2014 BP Systolic 104 mmHg BP Diastolic 66 mmHg Height 64 inches 5'4" Weight 128.00 lb BMI (Body Mass Index) 22.0 kg/m2 Last Menstrual Period 9505690 2 Parity 0 02/27/2011 BP Systolic 100 mmHg BP Diastolic 60 mmHg Height 64 inches 5'4" Weight 115.00 lb BMI (Body Mass Index) 19.7 kg/m2 Last Menstrual Period 6218773 0 Results Test Date Test Result H/L Range Note Laboratory test finding 03/13/2017 Glucose 1 HR Post 101 mg/dL 70-160 1 Prandial CBC With No Diff 03/13/2017 White Blood Count 10.1 10^3/uL 3.5-10.8 Red Blood Count 3.41 10^6/uL Low 4.0-5.4 Hemoglobin 12.1 g/dL 12.0-16.0 Hematocrit 36 % 35-47 Mean Corpuscular Volume 105 fL High 80-97 Mean Corpuscular Hemoglobin 36 pg High 27-31 Mean Corpuscular HGB Conc 34 g/dL 31-36 Red Cell Distribution Width 14 % 10.5-15 Platelet Count 184 10^3/uL 150-450 Mean Platelet Volume 8 um3 7.4-10.4 GC/Chlamydia Dna Probe 12/10/2016 Chlamydia trachomatis Rna Negative Negative Neisseria gonorrhoeae (GC) Rna Negative Negative Laboratory test finding 11/18/2016 TSH 0.01 mcIU/mL Low 0.34-5.60 2 T4 Free 1.90 ng/dL High 0.61-1.12 3 Parvovirus B19 Igg & 11/18/2016 Parvovirus (B19) IgG 4.53 index < 0.90 4 Igm Antibody Parvovirus (B19) IgM Antibody 0.22 index <0.90 5 Parvovirus Interpretation See Comment 6 Lead 11/18/2016 Lead <1.0 g/dL 0.0-4.9 7 Submitting Laboratory 8 HIV 1/2 AB Evaluation 11/18/2016 HIV 1 2 Antibody Nonreactive Nonreactive 9 Type And Screen 11/18/2016 Patient Blood Type A Positive Antibody Screen NEGATIVE CBC With No Diff 11/18/2016 White Blood Count 10.6 10^3/uL 3.5-10.8 Red Blood Count 4.05 10^6/uL 4.0-5.4 Hemoglobin 13.8 g/dL 12.0-16.0 Hematocrit 40 % 35-47 Mean Corpuscular Volume 98 fL High 80-97 Mean Corpuscular Hemoglobin 34 pg High 27-31 Mean Corpuscular HGB Conc 35 g/dL 31-36 Red Cell Distribution Width 12 % 10.5-15 Platelet Count 225 10^3/uL 150-450 Mean Platelet Volume 8 um3 7.4-10.4 PNL No Urine 11/18/2016 Rubella Screen Immune IU/mL Immune 10 Hemoglobin A1c 4.8 % 4.0-5.6 11 Hepatitis B Surface Ag Nonreactive Nonreactive 12 Syphillis Igg W/Reflex RPR Nonreactive Nonreactive 13 Spinal Muscular Atrophy Panel 11/18/2016 spinal muscular atrophy Negative 14 PDF Report SEE IMAGE Chromosomes 13, 18, 21 + Sex 11/18/2016 Chromosome 13 Aneuploidy Negative 15 Chromosome Chromosome 18 Aneuploidy Negative 16 Chromosome 21 Aneuploidy Negative 17 Sex Chromosome Analysis See notes 18 PDF Report SEE IMAGE Urine Culture And Sensitivities 11/11/2016 Urine Culture SEE RESULT BELOW 19 Laboratory test finding 01/24/2016 Cytology SEE RESULT BELOW 20 Human Papilloma Virus Rna Negative Negative 21 Laboratory test finding 03/02/2015 Genital For GRP B SEE RESULT BELOW 22 Strep Only CBC With No Diff 01/02/2015 White Blood Count 10.3 10^3/uL 4.8-10.8 Red Blood Count 3.65 10^6/uL Low 4.0-5.4 Hemoglobin 12.7 g/dL 12.0-16.0 Hematocrit 39 % 35-47 Mean Corpuscular Volume 106 fL High 80-97 23 Mean Corpuscular Hemoglobin 35 pg High 27-31 Mean Corpuscular HGB Conc 33 g/dL 31-36 Red Cell Distribution Width 14 % 10.5-15 Platelet Count 191 10^3/uL 150-450 Mean Platelet Volume 9 um3 7.4-10.4 Laboratory test finding 01/02/2015 Glucose 1 HR Post Prandial 106 mg/dL 70-160 GC/Chlamydia Dna Probe 10/05/2014 Chlamydia trachomatis Rna Negative Negative Neisseria gonorrhoeae (GC) Rna Negative Negative 24 RPR 09/09/2014 Pediatric/Maternal YES RPR Nonreactive Nonreactive RPR Titer TNP Syphilis IgG TNP Nonreactive CBC With No Diff 09/09/2014 White Blood Count 9.8 10^3/uL 4.8-10.8 Red Blood Count 4.00 10^6/uL 4.0-5.4 Hemoglobin 13.7 g/dL 12.0-16.0 Hematocrit 41 % 35-47 Mean Corpuscular Volume 102 fL High 80-97 Mean Corpuscular Hemoglobin 34 pg High 27-31 Mean Corpuscular HGB Conc 34 g/dL 31-36 Red Cell Distribution Width 13 % 10.5-15 Platelet Count 198 10^3/uL 150-450 Mean Platelet Volume 8 um3 7.4-10.4 Type And Screen 09/09/2014 Patient Blood Type A Positive Antibody Screen NEGATIVE HIV 1/2 AB Evaluation 09/09/2014 HIV 1 2 Antibody Nonreactive Nonreactive 25 Laboratory test finding 09/09/2014 TSH 0.52 ?IU/mL 0.34-5.60 PNL No Urine 09/09/2014 Rubella Screen Immune IU/mL Immune Hemoglobin A1c 4.7 % Less than 6.0 26 Hepatitis B Surface Ag Nonreactive Nonreactive 27 Urine Culture And 09/06/2014 Urine Culture SEE RESULT BELOW 28 Sensitivities Laboratory test finding 02/27/2011 Cytology 29 <SEE NOTE> 1 [id number] 2 [id number] 3 [id number] 4 Positive 5 Negative 6 RESULT: Results suggest past infection. Test Performed by: [facility] [address] [place] [address] 7 ADDITIONAL INFORMATION Testing performed by Inductively Coupled Plasma-Mass Spectrometry (ICP-MS). This test was developed and its performance characteristics determined by [facility] in a manner consistent with CLIA requirements. This test has not been cleared or approved by the U.S. Food and Drug Administration. 8 Test Performed by: [facility] [address] [place] [address] 9 It is recognized that currently available assays for the detection of antibodies to HIV-1 and/or HIV-2 may not detect all infected individuals. HIV antibodies may be undetectable in some stages of the infection and in some clinical conditions. The performance of this assay has not been established for populations of infants or children. Assayed by Chemiluminescence Microparticle Immunoassay on the Siemens Advia Centaur CP. Values obtained with different methods or kits cannot be used interchangeably.The diagnostic specificity of the ADVIA Centaur 1/O/2 Enhanced assay in the low risk population was 99.90% (6052/6058) with a 95% confidence interval of 99.78 to 99.96%. 10 [id number] 11 Therapeutic target for the treatment of diabetes mellitus patients is <7% HBA1C, and in selective patients <6.0%. Please refer to [place] Diabetes Association diabetic care guidelines for further information. 12 [id number] 13 Warning: A positive result is not useful for establishing a diagnosis of syphilis. In most situations, such a result may reflect a prior treated infection; a negative result can exclude a diagnosis of syphilis except for incubating or early primary disease. 14 Negative result: Negative for g.94220L>G SNP and SMN1: 2 copies. 15 No aneuploidy detected. 16 No aneuploidy detected. 17 No aneuploidy detected. 18 Y Chromosome Detected: No aneuploidy detected. 19 SEE RESULT BELOW Name: JOSE G COLVINPadmini : [address]: Antoinette Hubbard [facility] Acct: [id number] Unit: [id number] AGE: 41 Location: [facility] Re11/11/16 SEX: F Status: REG REF SPEC: [id number] GRETCHEN: 11/11/[address]: Antoinette Hubbard [facility] REQ: [id number] RECD: 11/11/16 STATUS: COMP _ SOURCE: URINE SPDES: ORDERED: Urine Culture COMMENTS: [id number] Urine Source: Random Procedure Result Reported Site Urine Culture Final 11/12/16- 1208 ML No Growth (<1,000 CFU/mL) * ML - MAIN LAB ([facility]) . END OF REPORT * ML=Testing performed at Main Lab DEPARTMENT OF PATHOLOGY, [address] [place] [address] Beau Goldberg M.D. Director [place] # [id number] 20 SEE RESULT BELOW Name: JOSE G COLVINPadmini : [address]: Gillian Roy MD Acct: [id number] Unit: [id number] AGE: 41 Location: [facility] Re01/24/16 SEX: F Status: REG REF SPEC: [id number] GRETCHEN: 01/24/16 [facility] DR: Gillian Roy MD REQ: [id number] RECD: 01/24/16 STATUS: SOUT _ ORDERED: IMAGE ANALYSIS, HPV/Thin Prep COMMENTS: [id number] FINAL DIAGNOSIS Negative for Intraepithelial lesion or Malignancy A. Ectocervical/Endocervical Specimen Adequacy: Satisfactory of evaluation Transformation zone component identified Patient Information: HPV: High risk HPV RNA testing regardless of pap results. Actual Specimen Date: 01/24/16 Last Menstrual Date: 01/15/16 Date of Last Specimen: 12/23/13 Date Time Test Result Flag (u) Normal Range 01/24/16 0922 HPV RNA Negative Negative The high-risk HPV types detected by the assay include: 16, 18, 31, 33, 35, 39, 45, 51, 52, 56, 58, 59, 66, and 68. Signed (signature on file) RADHA Ash(ASCP) 01/24 9441 This Pap test was evaluated with the assistance of the GetHired.comPrep Test Imaging System. Due to cytologic findings at the spindle carver microscope, comprehensive manual rescreening by a Sys Dir may be required. The Pap Smear is a screening test designed to aid in the detection of premalignant and malignant conditions of the uterine cervix. It is not a diagnostic procedure and should not be used as the sole means of detecting cervical cancer. Both false- positive and false- negative reports do occur. Depending on your risk status, a Pap smear should be obtained and evaluated every 1-3 years. END OF REPORT * ML=Testing performed at Main Lab DEPARTMENT OF PATHOLOGY, [address] [place] [address] Beau Goldberg M.D. Director [facility] # [id number] 21 The high-risk HPV types detected by the assay include: 16, 18, 31, 33, 35, 39, 45, 51, 52, 56, 58, 59, 66, and 68. 22 SEE RESULT BELOW Name: JOSE G COLVINPadmini : [address]: Chavo Ni MD Acct: [id number] Unit: [id number] AGE: 40 Location: [facility] Re03/02/15 SEX: F Status: REG REF SPEC: [id number] GRETCHEN: 03/02/15 [facility] DR: Chavo Ni MD REQ: [id number] RECD: 03/02/15 STATUS: COMP _ SOURCE: CER/VAG/RE SPDESC: ORDERED: Grp B Strp Scrn QUERIES: Is Patient Penicillin Allergic? N Is patient penicillin allergic and/or sensitivities needed? N Provider Requisition # C77#[id number]_ Procedure Result Reported Site Group B Strep Culture Screen Final 03/04/15- 1048 ML Group B Strep Screen Negative * ML - MAIN LAB ([facility]) . END OF REPORT * ML=Testing performed at Main Lab DEPARTMENT OF PATHOLOGY, [address] [place] [address] Beau Goldberg M.D. Director [facility] # [id number] 23 Adult MCV greater than 105 fl incubated 1/2 hr at 37c without significant change. 24 Female urine specimens have been self-validated by [facility] and have been granted conditional assay approval by [facility]. 25 It is recognized that currently available assays for the detection of antibodies to HIV-1 and/or HIV-2 may not detect all infected individuals. HIV antibodies may be undetectable in some stages of the infection and in some clinical conditions. The performance of this assay has not been established for populations of infants or children. Assayed by Chemiluminescence Microparticle Immunoassay on the Siemens Advia Centaur CP. Values obtained with different methods or kits cannot be used interchangeably.The diagnostic specificity of the ADVIA Centaur 1/O/2 Enhanced assay in the low risk population was 99.90% (6052/6053) with a 95% confidence interval of 99.78 to 99.96%. 26 Therapeutic target for the treatment of diabetes Mellitus patients is <7% HBA1C, and in selective patients <6.0%.Please refer to [place] Diabetes Association Diabetic care guidelines for further information. 27 , Pediatric (<=12yrs) or Maternal?: YES 28 SEE RESULT BELOW Name: MARBIN COLVIN : [address]: Joelle Dunham NP Acct: [id number] Unit: [id number] AGE: 39 Location: [facility] Re09/06/14 SEX: F Status: REG REF SPEC: [id number] GRETCHEN: 09/06/14-[address]: Joelle Dunham NP REQ: [id number] RECD: 09/06/14-1628 STATUS: COMP _ SOURCE: URINE SPDESC: ORDERED: Urine Culture Procedure Result Verified Site Urine Culture Final 09/08/14- 1012 ML Organism 1 NORMAL JOSH Garland Count 1-10,000 (Few) CFU/ML * ML - MAIN LAB ([facility]) . END OF REPORT * ML=Testing performed at Main Lab DEPARTMENT OF PATHOLOGY, [address] [place] [address] Beau Goldberg M.D. Director RADHANY # [id number] 29 ---- RUN DATE: 02/28/11 [facility] NMI LIVE PAGE 1 RUN TIME: 1319 Specimen Inquiry RUN USER: INTERFACE -- Name: MARBIN COLVIN Status: REG REF Re02/27/11 Age/Sex: 36/F Unit#: [id number] [facility] : 75 -- Specimen: [id number] SOUT Spec Date: 02/27/[address]: Brigette Gill Spec Type: CYTOLOGY Received: 02/28/11-1003 Copies to: SOURCE ECTOCERVICAL/ENDOCERVICAL Thin Prep with Reflex HPV Test PATIENT INFORMATION ACTUAL COLLECTION DATE: 02/27/11 PREVIOUS ABNORMAL PAP SMEARS No PATIENT HISTORY: Last menstrual period 01/2011 ADEQUACY OF SPECIMEN Satisfactory for evaluation * Transformation zone component identified * DIAGNOSIS NEGATIVE FOR INTRAEPITHELIAL LESION OR MALIGNANCY * This Pap test was evaluated with the assistance of the GetHired.comPrep Pap Test Imaging System. The Pap Smear is a screening test designed to aid in the detection of premalign ant and malignant conditions of the uterine cervix. It is not a diagnostic procedure a nd should not be used as the sole means of detecting cervical cancer. Both false- positiv e and false-negative reports do occur. Depending on your risk status, a Pap smear gwen uld be obtained and evaluated every one to three years. Initial evaluation performed by Ingrid RICHARDSON(ASCP) 02/28/11 Final Interpretation electronically signed by: Ingrid RICHARDSON(ASCP) 02/28/11 1319 -- -- DEPARTMENT OF PATHOLOGY, [address] [place] [address] [facility] Permit #[id number] Della Traylor M.D. Claims Configuration Analyst Dir paola -- Procedures Date CPT Code Description Status 05/20/2017 77787 Non-Stress Test Completed 05/14/2017 58589 Biophysical Profile Without Non Stress Test Completed 05/14/2017 76125 Ultrasound,Preg,Transabdomonal;Each Additional Completed Gestation 05/09/2017 13753 Biophysical Profile Without Non Stress Test Completed 05/09/2017 93889 Echography Uterus Follow-Up Or Repeat Completed 05/09/2017 51420 Ultrasound,Preg,Transabdomonal;Each Additional Completed Gestation 04/23/2017 38825 Non-Stress Test Completed 04/16/2017 66371 Non-Stress Test Completed 04/11/2017 51230 Echography Uterus Follow-Up Or Repeat Completed 04/11/2017 34410 Ultrasound,Preg,Transabdomonal;Each Additional Completed Gestation 03/13/2017 40954 Ultrasound,Preg,Transabdomonal;Each Additional Completed Gestation 03/13/2017 81104 Echography Uterus Follow-Up Or Repeat Completed 12/10/2016 06944 Echography Uterus Follow-Up Or Repeat Completed 11/11/2016 18142 Injection Intramuscular Or Subcutaneous Completed 11/08/2016 33076 OB Untrasound First Trimester Each Additional Gestation Completed 11/08/2016 68779 OB Ultrasound First Trimester Completed 04/03/2015 29957 Delivery Only Completed 04/03/2015 87899 Delivery Routine Completed 03/02/2015 94253 Echography Uterus Limited Completed 02/14/2015 33255 Biophysical Profile Without Non Stress Test Completed 02/14/2015 29142 Echography Uterus Follow-Up Or Repeat Completed 01/02/2015 38098 Injection Intramuscular Or Subcutaneous Completed 09/06/2014 30489 OB Ultrasound First Trimester Completed Encounters Type Date Location Provider CPT E/M Dx Office Visit 05/14/2017 10:00a [facility] [place] [address] O30.043 Z01.818 Office Visit 01/24/2016 9:00a [facility] Office Gillian Roy M.D. 03238 Z01.419 Office Visit 02/27/2011 9:00a [facility] [place] [address] V72.31 611.79 624.8 V76.2 Plan of Care Future Appointment(s):05/26/2017 7:45 am - Valentina Diaz MD [place] [facility] [place] R02017 7:45 am - Luh Prado MD at [facility] R007/02/2017 1:30 pm - Luh Prado MD at [facility]06/03/2017 1:20 pm - Anitha Douglas LM at [facility]05/14/2017 - Luh Prado MDO30.043 Twin , dichorionic/ diamniotic, third trimesterComments:Routine care delivered. Both A/B with good growth and normal monitoring.Z01.818 Encounter for other preprocedural examinationComments:Reviewed with patient risk and benefits of repeat section. PT and are aware of riskto include but not limited to infection, bleeding ,damage to internal organs, pain ,scarring and need for further surgery. Consent form personally reviewed and signed with patient. all questions answered.
[2017-05-26] MEDS ORDERED: ceFOXitin 2 GM IVPREMIX* 2 GM/50 ML BAG IVPB ONE (07:00)
[2017-05-26] MEDS ORDERED: Ketorolac INJ* 30 MG/ML 1 ML VIAL ONE (07:41)
[2017-05-26] MEDS ORDERED: OXYTOCIN* 10 UNITS/ML 1 ML VIAL ONE (07:41)
[2017-05-26] MEDS ORDERED: Ondansetron INJ* 2 MG/ML VIAL ONE (07:41)
[2017-05-26] MEDS ORDERED: Bupivacaine-MPF SPINAL* 7.5 MG/2 ML AMP ONE (07:41)
[2017-05-26] MEDS ORDERED: Sodium Citrate/Citric Acid* 15 ML UDC PO ONE (07:41)
[2017-05-26] MEDS ORDERED: EPHEDrine (Pressors)* 50 MG/ML VIAL ONE (08:10)
[2017-05-26] MEDS ORDERED: Phenylephrine IV* 40 MCG/ML 10 ML SYRINGE ONE (08:10)
[2017-05-26] MEDS ORDERED: DiMENhydriNATE IV* 50 MG/ML VIAL IV PUSH PRN (09:09)
[2017-05-26] MEDS ORDERED: Witch Hazel PAD* JAR TOPICAL PRN (09:17)
[2017-05-26] MEDS ORDERED: Glycerin ADULT SUPP PR PRN (09:17)
[2017-05-26] MEDS ORDERED: Dibucaine 1% 28.35 GM TUBE PR PRN (09:17)
[2017-05-26] MEDS ORDERED: oxyCODONE/Acetamin 5/325 MG* TAB PO PRN ×2 (09:17)
[2017-05-26] MEDS ORDERED: Oxytocin in LR* 20 UNITS/1,000 ML BAG IVPB SCH (10:00)
--- NOTE | 2017-05-26 10:44 | OP ---
DATE OF OPERATION: 05/26/17 - ROOM #117 DATE OF : 75 SURGEON: Luh Prado MD FIRE CONTROL TECHNICIAN: Valentina Diaz MD PRE-OP DIAGNOSES: Intrauterine twin gestation, diamniotic dichorionic, 38 and 0 /7th weeks, desires repeat section. POST-OP DIAGNOSES: Intrauterine twin gestation, diamniotic dichorionic, 38 and 0 /7th weeks, desires repeat section, delivered. OPERATIVE PROCEDURE: Repeat low transverse section. INTRAVENOUS FLUIDS: 2200 cc of crystalloid. ESTIMATED BLOOD LOSS: 600 cc. URINE OUTPUT: 500 cc of clear yellow urine. FINDINGS: Revealed a vertex A male infant, Apgars 8 at one minute and 9 at five minutes, nuchal cord x1, clear amniotic fluid, weight was 7 pounds 1 ounce. Normal- appearing placenta, 3-vessel cord manually extracted and intact. Baby B is a vertex female, Apgars were 9 at one minute and 9 at five minutes, weight was 6 pounds 9 ounces. No meconium. No nuchal cord. Placenta was 3-vessel cord manually extracted and intact. Normal-appearing tubes and ovaries bilaterally. Normal-appearing uterus. Uterine cavity without evidence of masses, excrescences, or retained placental or membrane tissue without evidence of those things. COMPLICATIONS: None apparent. DISPOSITION: Stable to recovery room. DESCRIPTION OF PROCEDURE: The patient was placed in dorsal lithotomy position. Abdomen was prepped and draped in a sterile standard fashion. Anesthesia was tested to appropriate level. Prior keloid scar was excised with scalpel and this incision was then carried down to the fascia. Fascia was scored in the midline and extended laterally and superiorly using curved Sawyer scissors. Fascia was superiorly and inferiorly with scalpel. Peritoneum was then entered sharply. Peritoneal incision was bluntly extended both superiorly and inferiorly and the bladder blade was inserted. A bladder flap was created through blunt and sharp dissection. Lower uterine segment was visualized and incised with a scalpel down to membranes. The incision was extended bluntly. The first head was delivered A. Amniotomy was created, clear fluid, nuchal cord x1 reduced, and the baby was delivered. Cord was allowed to pulse for 60 seconds and then clamped and cord was then cut. The infant was handed off to awaiting elevator examiner. The second baby was then delivered B, vertex, female . No meconium. No nuchal cord. Amniotomy with an Allis clamp. The cord was allowed to pulse for 60 seconds and then clamped and cut and handed off to awaiting elevator examiner. Appropriate cord blood was then obtained both from baby B's cord and baby A's cord and labeled accordingly. The placentas then were manually extracted and delivered and noted to have a normal appearance with 3-vessel cord. The uterine cavity was then explored and wiped with warm moist laparotomy sponge. There was no evidence of retained placental tissue or membranes. The uterus incision was then reapproximated in 2 layers, first layer running locked, second layer running imbricated. Please note that the uterus was exteriorized for closure of the hysterotomy site. The tubes and ovaries were noted to have a normal appearance as well as the uterus. The uterus was returned intraabdominally. Colic gutters were lavaged. Hemostasis was assured at the hysterotomy site. The peritoneum was then reapproximated using 3-0 Vicryl in a running fashion. Subfascial area was visualized, hemostasis assured with Bovie coagulation and the fascia was reapproximated using 0 Vicryl x2 in a running fashion. Subcu was lavaged, hemostasis assured, and the skin was then reapproximated using a 4-0 Monocryl in a subcuticular fashion. Mastisol and Steri's were applied. Please note that the subcutaneous tissue was less than 2 cm thickness, so a subcuticular stitch was not applied. All sponge, needle, instrument and blade counts were correct throughout the case. The patient tolerated the procedure well and went to recovery room in stable condition. [id number]/[facility] #: [id number] [facility]EDora
[2017-05-26] MEDS: Docusate CAP* 100 MG PO SCH ×2 (12:48→19:59)
[2017-05-26] MEDS: Simethicone TAB* 80 MG TAB.CHEW PO SCH ×2 (12:48→18:15)
[2017-05-26] MEDS: Ketorolac INJ* 30 MG/ML 1 ML VIAL IV PUSH SCH ×2 (14:59→22:34)
[2017-05-26] MEDS: Acetaminophen TAB* 325 MG PO PRN (20:00)
[2017-05-27] MEDS: Acetaminophen TAB* 325 MG PO PRN ×5 (00:10→20:08)
[2017-05-27] MEDS: Ketorolac INJ* 30 MG/ML 1 ML VIAL IV PUSH SCH (04:07)
[2017-05-27] MEDS: Simethicone TAB* 80 MG TAB.CHEW PO SCH ×5 (04:56→20:09)
[2017-05-27 06:41] LABS: ABS Basophils 0 10^3/ul (0-0.2); ABS Eosinophils 0.1 10^3/ul (0-0.6); ABS Lymphocytes 1.3 10^3/ul (1.0-4.8); ABS Monocytes 0.5 10^3/ul (0-0.8); ABS Neutrophils 7.8 10^3/ul (1.5-7.7); ABS Nucleated RBC 0 10^3/ul; Eosinophil % 1.2 % (0-6); Hematocrit 34 % (35-47); Hemoglobin 12.1 g/dl (12.0-16.0); Lymphocyte % 13.5 % (25-47); Mean Corpuscular HGB Conc 36 g/dl (31-36); Mean Corpuscular Hemoglobin 37 pg (27-31); Mean Corpuscular Volume 104 fL (80-97); Mean Platelet Volume 8.7 um3 (7.4-10.4); Nucleated Red Blood Cells % 0; Platelet Count 118 10^3/ul (150-450); Red Blood Count 3.23 10^6/ul (4.0-5.4); Red Cell Distribution Width 14 % (10.5-15); White Blood Count 9.8 10^3/ul (3.5-10.8)
[2017-05-27] MEDS: Prenatal Vitamin TAB PO SCH (08:45)
[2017-05-27] MEDS: Docusate CAP* 100 MG PO SCH ×3 (08:45→20:08)
[2017-05-27] MEDS: Ibuprofen TAB* 600 MG PO PRN ×3 (10:16→22:26)
[2017-05-27] MEDS: Ferrous Gluconate TAB* 324 MG TAB PO SCH ×2 (10:17→20:19)
[2017-05-27] MEDS: DOCOSAHEXANOIC ACID PO SCH (20:21)
[2017-05-28] MEDS: Acetaminophen TAB* 325 MG PO PRN ×6 (00:16→21:06)
[2017-05-28] MEDS: Ibuprofen TAB* 600 MG PO PRN ×3 (04:13→19:48)
[2017-05-28] MEDS: DOCOSAHEXANOIC ACID PO SCH (08:22)
[2017-05-28] MEDS: Docusate CAP* 100 MG PO SCH ×3 (08:22→21:06)
[2017-05-28] MEDS: Prenatal Vitamin TAB PO SCH (08:27)
[2017-05-28] MEDS: Simethicone TAB* 80 MG TAB.CHEW PO SCH ×4 (08:27→21:06)
[2017-05-28] MEDS: Ketorolac INJ* 30 MG/ML 1 ML VIAL IV PUSH SCH (08:32)
[2017-05-29] MEDS: Acetaminophen TAB* 325 MG PO PRN ×3 (01:09→11:30)
[2017-05-29] MEDS: Ibuprofen TAB* 600 MG PO PRN ×3 (01:48→14:19)
[2017-05-29 08:24] VITALS: BP 124/69
[2017-05-29] MEDS: Prenatal Vitamin TAB PO SCH (08:30)
[2017-05-29] MEDS: Docusate CAP* 100 MG PO SCH ×2 (08:30→14:19)
[2017-05-29] MEDS: Simethicone TAB* 80 MG TAB.CHEW PO SCH ×2 (08:30→14:19)
== END 2017-05-29 14:26 | disposition home or self-care (01) | DRG 540 ==
LOC: MCHOB 06:12
PROVIDERS: ADMIT Obstetrics & Gynecology; ATTEND Obstetrics & Gynecology
PROC: 4A1HXCZ Monitoring of Products of Conception, Cardiac Rate, External Approach (ICD-10-PCS; 2017-05-26)
PROC: 10D00Z1 Extraction of Products of Conception, Low, Open Approach (ICD-10-PCS; principal; 2017-05-26 07:45)
DX: O34.211 Maternal care for low transverse scar from previous cesarean delivery (principal); O30.043 Twin pregnancy, dichorionic/diamniotic, third trimester; O69.81X1 Labor and delivery complicated by cord around neck, without compression, fetus 1; Z37.2 Twins, both liveborn; Z3A.38 38 weeks gestation of pregnancy; Z87.01 Personal history of pneumonia (recurrent); Z88.8 Allergy status to other drugs, medicaments and biological substances; Z83.49 Family history of other endocrine, nutritional and metabolic diseases; Z82.49 Family history of ischemic heart disease and other diseases of the circulatory system; Z88.5 Allergy status to narcotic agent
CPT/HCPCS: 36415; 85025; 86850; 86900; 86901; A9270-GY; J0694; J1885; J2405; J2590

== ENCOUNTER 2017-08-30 11:12 | Emergency (ER) | payer BC ==
[2017-08-30 11:29] VITALS: BP 109/75
--- NOTE | 2017-08-30 12:09 | UC ---
Respiratory Complaint HPI - HPI Summary HPI Summary: worsening sinus pain and congestion-has fevers and worsening maxillary sinus discomfort - History of Current Complaint Chief Complaint: UCGeneralIllness Stated Complaint: FEVER RESP ISSUE COUGH HEADACHE Time Seen by Provider: 08/30/17 11:55 Hx Obtained From: Patient Hx Last Menstrual Period: 06/09/17 ?: No Onset/Duration: Lasting Minutes, Lasting Weeks - 1, Still Present Timing: Constant Pain Intensity: 2 Pain Scale Used: 0-10 Numeric Character: Cough: Nonproductive Aggravating Factors: Nothing Alleviating Factors: Nothing Associated Signs And Symptoms: Positive: Fever, Chills, Nasal Congestion - Allergies/Home Medications Allergies/Adverse Reactions: Allergies Allergy/AdvReac Type Severity Reaction Status Date / Time aspirin Allergy Rash Verified 08/30/17 11:29 banana Allergy GI Upset Verified 08/30/17 11:29 morphine Allergy Shortness Verified 08/30/17 11:29 [From Duramorph (PF)] of Breath PMH/Surg Hx/FS Hx/Imm Hx Previously Healthy: No Respiratory History: Pneumonia - Surgical History Surgical History: Yes Surgery Procedure, Year, and Place: csection x 2 - Family History Known Family History: Positive: Cardiac Disease, Hypertension, Other - hyperthyroidism - Social History Occupation: Employed Full-time Lives: With Family Alcohol Use: None Substance Use Type: None Smoking Status (MU): Never Smoked Tobacco - Immunization History Most Recent Influenza Vaccination: 12/08/14 Most Recent Tetanus Shot: 01/02/15 Most Recent Pneumonia Vaccination: never Review of Systems Constitutional: Fever, Chills, Fatigue Skin: Negative Eyes: Negative ENT: Nasal Discharge, Sinus Congestion, Sinus Pain/Tenderness Respiratory: Cough Cardiovascular: Negative Gastrointestinal: Negative Genitourinary: Negative Motor: Negative Neurovascular: Negative Musculoskeletal: Negative Neurological: Negative Psychological: Negative Is Patient Immunocompromised?: No All Other Systems Reviewed And Are Negative: Yes Physical Exam Triage Information Reviewed: Yes Appearance: Well-Appearing, No Pain Distress, Pain Distress - mild Vital Signs: Initial Vital Signs Temp 99.2 F 08/30/17 11:26 Pulse 93 08/30/17 11:26 Resp 16 08/30/17 11:26 BP 109/75 08/30/17 11:26 Pulse Ox 100 08/30/17 11:26 Vital Signs Reviewed: Yes Eye Exam: Normal Eyes: Positive: Conjunctiva Clear ENT Exam: Normal ENT: Positive: Normal ENT inspection, Hearing grossly normal, Pharynx normal, Nasal congestion, Nasal drainage, TMs normal, Hoarse voice, Sinus tenderness, Uvula midline. Negative: Trismus, Muffled voice Dental Exam: Normal Neck exam: Normal Neck: Positive: Supple, Nontender Respiratory Exam: Normal Respiratory: Positive: Chest non-tender, Normal breath sounds, No respiratory distress, No accessory muscle use, Expiration Cardiovascular Exam: Normal Cardiovascular: Positive: RRR, No Murmur, Pulses Normal, Brisk Capillary Refill Musculoskeletal Exam: Normal Musculoskeletal: Positive: Strength Intact, ROM Intact, No Edema Neurological Exam: Normal Neurological: Positive: Alert, Muscle Tone Normal Psychological Exam: Normal Skin Exam: Normal UC Diagnostic Evaluation - Laboratory O2 Sat by Pulse Oximetry: 100 Respiratory Course/Dx - Course Course Of Treatment: flnase, albuterol, amoxicillin, continue saline rinces follow with pcp prn - Differential Dx/Diagnosis Provider Diagnoses: acute rhinosinusitis Discharge - Sign-Out/Discharge Documenting (check all that apply): Patient Departure - Discharge Plan Condition: Stable Disposition: HOME Prescriptions: Albuterol HFA INHALER* [Ventolin HFA Inhaler*] 2 puff INH Q4H PRN #1 mdi PRN Reason: cough/chest congestion Amoxicillin PO (*) [Amoxicillin 875 MG (*)] 875 mg PO BID #20 tab Fluticasone NASAL SPRAY 50MCG* [Flonase NASAL SPRAY 50MCG*] 2 spray BOTH NARES DAILY #1 btl Patient Education Materials: Sinusitis (ED), How to Use a Metered-Dose Inhaler (ED), Nasal Rinse (ED), How to Use Nasal [place] (ED) Referrals: Sofia Aguero MD [Primary Care Provider] - If Needed - Billing Disposition and Condition Condition: STABLE Disposition: Home
== END 2017-08-30 12:23 | disposition home or self-care (01) ==
LOC: UCEAST 11:12
DX: J01.90 Acute sinusitis, unspecified (principal); Z88.6 Allergy status to analgesic agent; Z91.018 Allergy to other foods; Z88.5 Allergy status to narcotic agent
CPT/HCPCS: 99212; G0463